=== PATIENT | female | born 1950 | race Caucasian/White ===

== ENCOUNTER 2016-09-09 09:39 | Emergency (ER) | payer OTHER, BC ==
[~2016-09-09] VITALS: Ht 162.6 cm; Wt 97.2 kg
[~2016-09-09 09:39] MED LIST: ASPI81TA21 PO; CALC-416 PO; FENO160T PO; HYDR-3124 PO; LEVO112T4 PO; LISI-725 PO; OMEG10007 PO; PANT40TA PO
[2016-09-09 09:50] VITALS: TEMP 36.9; Ht 162.6 cm; Wt 97.2 kg
[2016-09-09] MEDS ORDERED: ZNTT/150 PO (10:40)
[2016-09-09] MEDS ORDERED: ATEN50TA8 PO (10:40)
--- NOTE | 2016-09-09 10:41 | DIAGNOSTIC IMAGING REPORT ---
LEFT ANKLE 3 VIEWS CLINICAL HISTORY: Left ankle pain. FINDINGS: 3 views of the left ankle are obtained. No prior studies are available for comparison at the time of dictation. The skeletal structures are osteopenic. There is a distracted avulsion fracture of the medial malleolus. A vertically oriented fracture is seen through the posterior tibial plafond, and there is approximately 2 cm of posterior dislocation of the talus at the tibiotalar joint. There is an oblique and distracted fracture of the distal fibula. A large joint effusion is identified and significant soft tissue edema is present around ankle. There is a large dorsal calcaneal enthesophyte. Degenerative spurring is noted from the anterior tibial plafond. Degenerative spurring is also seen along the dorsal aspect of the tarsal bones. IMPRESSION: Trimalleolar left ankle fracture and dislocation as above with associated joint effusion and soft tissue edema. Electronically signed by: Donny Cuevas M.D. 09/09/2016 10:40 AM Dictated Date/Time: 09/09/2016 10:37 AM
[2016-09-09] MEDS ORDERED: MoRPHine SULFATE 2 MG/ML CARP IV STA ×2 (10:44→12:16)
[2016-09-09] MEDS ORDERED: ONDANSETRON INJ 2 MG/ML 2 ML VIAL IV STA (10:44)
[2016-09-09 11:01] LABS: BASO % 0.7 %; BASO ABS # 0.04 K/uL (0-0.2); COMPLETE YES; EOS % 1.9 %; HEMATOCRIT 44.2 % (37-47); IG% 0.2 %; LYMPH % 17.6 %; LYMPH ABS # 1.04 K/uL (1.2-3.4); MEAN CELL VOLUME 89.7 fL (80-100); MEAN CORPUSCULAR HEMOGLOBIN 30.2 pg (25-34); MEAN CORPUSCULAR HGB CONC 33.7 g/dl (32-36); MEAN PLATELET VOLUME 10.8 fL (7.4-10.4); MONO % 10.3 %; NEUT % 69.3 %; PLATELET COUNT 216 K/uL (130-400); RED BLOOD COUNT 4.93 M/uL (4.2-5.4)
[2016-09-09 11:34] LABS: BUN/CREATININE RATIO 22.7 (10-20); CALCIUM 10.4 mg/dl (8.5-10.1)
--- NOTE | 2016-09-09 12:01 | DIAGNOSTIC IMAGING REPORT ---
LEFT ANKLE 3 VIEWS CLINICAL HISTORY: Postreduction examination. Ankle fracture. FINDINGS: 3 views of the left ankle are compared to study performed earlier the same day 09/09/2016. The examination is performed through a splint, obscuring fine bony detail. The skeletal structures are osteopenic. Again seen is a distracted avulsion fracture of the medial malleolus and a minimally distracted fracture distal fibula. A vertically oriented fracture is again seen through the posterior tibial plafond, and there is has been modest improvement in alignment status post reduction. There is approximately 1.4 cm of persistent posterior dislocation of the talus at the tibiotalar joint. A large joint effusion is identified and significant soft tissue edema is present around ankle. There is a large dorsal calcaneal enthesophyte. Degenerative spurring is noted from the anterior tibial plafond. Degenerative spurring is also seen along the dorsal aspect of the tarsal bones. IMPRESSION: Modest improvement in alignment of a trimalleolar left ankle fracture status post external reduction. Electronically signed by: Donny Cuevas M.D. 09/09/2016 11:59 AM Dictated Date/Time: 09/09/2016 11:57 AM
[2016-09-09] MEDS ORDERED: HYDR-5688 PO (12:52)
--- NOTE | 2016-09-09 13:04 | DIAGNOSTIC IMAGING REPORT ---
LEFT ANKLE 3 VIEWS CLINICAL HISTORY: Postreduction examination. Left ankle fractures. FINDINGS: AP and crosstable lateral portable views of the left ankle are compared to studies performed earlier the same day 09/09/2016. The skeletal structures are osteopenic. Again seen is a trimalleolar fracture of the left ankle, with an avulsion fracture of the medial malleolus an oblique fracture through the distal fibula. Again seen is a vertically oriented and comminuted fracture through the posterior tibial plafond. There is approximately 9 mm of posterior distraction of the largest fragments. There has been shinto of near-anatomic alignment at the tibiotalar joint as compared to previous. A large joint effusion is identified and significant soft tissue edema is present around ankle. There is a large dorsal calcaneal enthesophyte. Degenerative spurring is noted from the anterior tibial plafond. Degenerative spurring is also seen along the dorsal aspect of the tarsal bones. IMPRESSION: Again seen is a trimalleolar left ankle fracture. There has been significant improvement in alignment as compared to previous with shinto of near-anatomic alignment at the tibiotalar joint. Electronically signed by: Donny Cuveas M.D. 09/09/2016 1:03 PM Dictated Date/Time: 09/09/2016 1:00 PM
[2016-09-09 13:10] VITALS: BP 124/83; PULSE 68; O2SAT 91
--- NOTE | 2016-09-09 17:40 | EMERGENCY ROOM VISIT NOTE ---
ED Visit Note First contact with patient: 09:59 Chief complaint: Left ankle pain. HPI: This 66-year-old white female presents to the emergency room for evaluation of her left ankle. The patient injured the ankle about an hour ago when she walked down 2 steps in her garage. She slipped and landed awkwardly on the left ankle. She felt a snap and was unable to bear weight on the ankle. She states it became swollen immediately. Since that time, they have had persistent pain over the medial and lateral portion of the ankle. She denies any numbness or tingling. no knee or hip pain. Treatment has consisted of ice provided in the ER. No prior history of significant ankle injury. Pain is 7/ 10. There is a visible deformity to the ankle. Her son accompanies her today. REVIEW OF SYSTEM: HEENT: No dizziness, visual problems, hearing loss, tinnitus. There is no difficulty swallowing and no oral lesions are present. PULMONARY: No cough, shortness of breath, sputum production or hemoptysis. CARDIOVASCULAR: No chest pain, palpitations, shortness of breath or peripheral edema. GASTROINTESTINAL: No diarrhea, constipation, nausea, vomiting, or abdominal pain. GENITOURINARY: No dysuria, frequency, urgency or nocturia. NEUROLOGIC: No weakness, muscle tenderness, epilepsy or history of neurological problems. MUSCULOSKELETAL: No history of joint tenderness/swelling. No history of arthritis or arthralgias. SKIN: No rashes or lesions. ENDOCRINE: No history of diabetes, abnormal hair growth. PAST MEDICAL HISTORY: Supplemental sheet was reviewed and signed. Previous surgeries: None Medical history: Significant for hypertension, GERD, hypothyroidism, elevated cholesterol, and osteoarthritis Current medications: Reviewed and filed in patient's chart Allergies: Adhesives, citalopram, codeine, gemfibrozil, minocycline, Macrobid, Bactrim Family history: Noncontributory. Social history: . Retired. No tobacco use. PHYSICAL EXAM: Vitals: Afebrile. Reviewed and filed in patient's chart General: Well-developed, well-nourished, elderly white female, in obvious discomfort. No acute distress. She is sitting in a wheelchair. Alert and oriented. Skin:Warm and dry with good turgor. No rashes or lesions. No erythema. The patient is not diaphoretic. No abrasions. Edema is present in the left ankle with mild ecchymosis developing there is a prominence over the tibia anteriorly. Musculoskeletal: Left ankle evaluation reveals no pain with palpation across the knee or proximal tibia or fibula. There is pain with palpation over the lateral malleolus and the lateral ligaments. There is also pain over the medial malleolus and deltoid ligament. Crepitus is palpable. Achilles' tendon is palpated to its entirety and found to be intact and without defect. Normal Staton test. No pain with palpation of the calcaneus, fifth metatarsal base, midfoot, forefoot, or toes. Motor function to the toes is intact but causes ankle pain. Drawer and tilt test were not attempted. Neurologic: Gross sensation is intact across all aspects of the foot and ankle via soft touch. Peripheral pulses are 2+. Data: Radiographic images of the ankle were obtained today and were reviewed by me as well as radiology. They are positive for trimalleolar fracture dislocation of the ankle with posterior and lateral displacement. IMPRESSION: Left ankle trimalleolar fracture dislocation PLAN: The patient was educated regarding today's findings. Conservative care measures were discussed. IV was established. Labs were obtained. Patient was given Zofran 4 mg IV and morphine 2 mg IV. I did attempt to reduce the ankle. Shift was felt. The ankle was splinted under my direct supervision while I maintained reduction. The technical support analyst did assist with the splinting. Neurovascular status was checked after splint placement and was adequate. Postreduction films confirmed improvement in the AP film, but the ankle remained dislocated posteriorly on the lateral. The splint was removed and the patient was given an additional 2 mg morphine IV. Countertraction was also applied at her knee. I did attempt a second reduction and felt a significant shift with visibly better positioning of the ankle. Postreduction films were obtained prior to splint placement. They confirmed reduction of the ankle on the lateral. Medial lateral positioning also remained adequate. Splint was then reapplied with the assistance of the technical support analyst. Neurovascular status was again checked and was intact. Patient was instructed to be nonweightbearing on the left leg. She has a walker at home. I would like her to follow up in the office tomorrow for more definitive management. She will likely need surgical intervention. Prescription was given for Hilbert 5 mg to be used every 6 hours as needed for severe pain. She may use Tylenol and Motrin every 6 hours for mild discomfort. Gentle toe motion daily. Ice and elevate intermittently over the next 3 days. Lower leg should be elevated at night during sleep. Return to the ER for any acute changes. Possibility of tendon rupture, sprain, and foot fracture were also considered. Problem List Medical Problems: (1) Benign hypertension Status: Chronic (2) Chronic Sinusitis Nos Status: Chronic (3) Esophageal Reflux Status: Chronic (4) Gastroesophageal reflux disease Status: Chronic (5) Hyperlipidemia Nec/Nos Status: Chronic (6) Hypertension Nos Status: Chronic (7) Hypothyroidism Status: Chronic Current/Historical Medications Scheduled Aspirin Enteric Coated (Ecotrin Or Generic), 81 MG PO DAILY Atenolol (Tenormin), 50 MG PO DAILY Calcium Carbonate-Vitamin D (Calcium 600+D3), 1 TAB PO BID Fenofibrate (Tricor), 160 MG PO DAILY Fish Oil (Blackwater-3), 1 CAP PO BID Hydroxyzine Hcl (Atarax), 25 MG PO DAILY Levothyroxine Sodium (Levothyroxine Sodium), 112 MCG PO DAILY Ranitidine (Zantac), 150 MG PO BID Scheduled PRN Hydrocodone/Acetaminophen 5MG/325MG (Hilbert 5MG/325MG), 1-2 TABLET PO Q6H PRN for Pain Allergies Coded Allergies: Adhesives (Verified Allergy, Unknown, ., 09/16/14) Citalopram (Verified Allergy, Unknown, UNKNOWN, 09/16/14) Codeine (Verified Allergy, Unknown, ., 09/16/14) Gemfibrozil (Verified Allergy, Unknown, UNKNOWN, 09/16/14) Minocycline (Verified Allergy, Unknown, ., 09/16/14) Nitrofurantoin (Verified Allergy, Unknown, UNKNOWN, 09/16/14) Sulfamethoxazole w/Trimethoprim (Verified Allergy, Unknown, ., 09/16/14) POLLEN (Verified Adverse Reaction, Unknown, UNKNOWN, 09/16/14) Uncoded Allergies: MOLD (Adverse Reaction, Unknown, UNKNOWN, 12/21/13) Vital Signs Date Time Temp Pulse Resp B/P (MAP) Pulse Ox O2 Delivery O2 Flow Rate FiO2 09/09/16 13:10 68 20 124/83 91 09/09/16 12:00 71 20 146/77 91 Room Air 09/09/16 09:50 36.9 68 16 148/82 93 Room Air Laboratory Results 09/09/16 10:46 Red Blood Count 4.93, Mean Corpuscular Volume 89.7, Mean Corpuscular Hemoglobin 30.2, Mean Corpuscular Hemoglobin Concent 33.7, Mean Platelet Volume 10.8, Neutrophils (%) (Auto) 69.3, Lymphocytes (%) (Auto) 17.6, Monocytes (%) (Auto) 10.3, Eosinophils (%) (Auto) 1.9, Basophils (%) (Auto) 0.7, Neutrophils # (Auto ) 4.09, Lymphocytes # (Auto) 1.04, Monocytes # (Auto) 0.61, Eosinophils # (Auto ) 0.11, Basophils # (Auto) 0.04 09/09/16 10:46 Test 09/09/16 10:46 White Blood Count 5.90 K/uL (4.8-10.8) Red Blood Count 4.93 M/uL (4.2-5.4) Hemoglobin 14.9 g/dL (12.0-16.0) Hematocrit 44.2 % (37-47) Mean Corpuscular Volume 89.7 fL (80-100) Mean Corpuscular Hemoglobin 30.2 pg (25-34) Mean Corpuscular Hemoglobin Concent 33.7 g/dl (32-36) Platelet Count 216 K/uL (130-400) Mean Platelet Volume 10.8 fL (7.4-10.4) Neutrophils (%) (Auto) 69.3 % Lymphocytes (%) (Auto) 17.6 % Monocytes (%) (Auto) 10.3 % Eosinophils (%) (Auto) 1.9 % Basophils (%) (Auto) 0.7 % Neutrophils # (Auto) 4.09 K/uL (1.4-6.5) Lymphocytes # (Auto) 1.04 K/uL (1.2-3.4) Monocytes # (Auto) 0.61 K/uL (0.11-0.59) Eosinophils # (Auto) 0.11 K/uL (0-0.5) Basophils # (Auto) 0.04 K/uL (0-0.2) RDW Standard Deviation 42.4 fL (36.4-46.3) RDW Coefficient of Variation 12.9 % (11.5-14.5) Immature Granulocyte % (Auto) 0.2 % Immature Granulocyte # (Auto) 0.01 K/uL (0.00-0.02) Anion Gap 9.0 mmol/L (3-11) Est Creatinine Clear Calc Drug Dose 62.7 ml/min Estimated GFR () 68.0 Estimated GFR (Non- 58.7 BUN/Creatinine Ratio 22.7 (10-20) Calcium Level 10.4 mg/dl (8.5-10.1) Medications Administered Medications (Trade) Dose Ordered Sig/Lucho Route Start Time Stop Time Status Last Admin Dose Admin Morphine Sulfate (MoRPHine SULFATE INJ) 2 mg NOW STAT IV 09/09/16 10:44 09/09/16 10:47 DC 09/09/16 10:56 2 MG Ondansetron HCl (Zofran Inj) 4 mg NOW STAT IV 09/09/16 10:44 09/09/16 10:47 DC 09/09/16 10:56 4 MG Morphine Sulfate (MoRPHine SULFATE INJ) 2 mg NOW STAT IV 09/09/16 12:16 09/09/16 12:17 DC 09/09/16 12:19 2 MG Departure Information Impression Primary Impression: Trimalleolar fracture of ankle, closed Dispostion Home / Self-Care Condition GOOD Prescriptions Hydrocodone/Acetaminophen 5MG/325MG (Hilbert 5MG/325MG) Tab 1-2 TABLET PO Q6H Y for Pain, #20 TAB For Initial Treatment Prov: Fernando Collazo,P.A. 09/09/16 Referrals Charles Roland M.D. Forms CARE OF CASTS, HOME CARE DOCUMENTATION FORM, SPECIAL NARCOTICS INSTRUCTIONS, TYLENOL USE, IMPORTANT VISIT INFORMATION Patient Instructions My [facility] Additional Instructions ice and elevate the leg frequently to reduce pain/swelling norco 1-2 pills every 6 hours as needed for severe pain substitute tylenol every 6 hours for mild pain call [facility] tomorrow morning for follow up keep the splint on and dry at all times NO WEIGHT on the left leg-use your walker.
[2016-09-13] MEDS ORDERED: ACET-1256 PO (09:19)
[2016-09-17] MEDS ORDERED: HYDR-5688 PO (10:46)
[2016-10-01] MEDS ORDERED: CMD25 PO (11:26)
[2016-12-18] MEDS ORDERED: CMD2 PO (15:20)
== END 2016-09-09 13:14 | disposition home or self-care (01) ==
LOC: C.EDB 09:40
DX: S82.852A Displaced trimalleolar fracture of left lower leg, initial encounter for closed fracture (principal); W10.9XXA Fall (on) (from) unspecified stairs and steps, initial encounter; Y92.015 Private garage of single-family (private) house as the place of occurrence of the external cause; I10 Essential (primary) hypertension; K21.9 Gastro-esophageal reflux disease without esophagitis; E03.9 Hypothyroidism, unspecified; E78.00 Pure hypercholesterolemia, unspecified; M19.90 Unspecified osteoarthritis, unspecified site; J32.9 Chronic sinusitis, unspecified; E78.5 Hyperlipidemia, unspecified; Z79.82 Long term (current) use of aspirin; Z79.899 Other long term (current) drug therapy

== ENCOUNTER → 2016-09-13 | Outpatient (CLI) | payer OTHER, BC ==
[~2016-09-13] MED LIST changes: +ACET-1256 PO; +ASPI-113 PO; +ATEN50TA8 PO; +CMD2 PO; +CMD25 PO; +HYDR-4330 PO; +HYDR-5688 PO; -LISI-725 PO; -PANT40TA PO; +ZNTT/150 PO
--- NOTE | 2016-09-13 16:11 | DIAGNOSTIC IMAGING REPORT ---
CT LEFT ANKLE NO CONTRAST CT DOSE: CLINICAL HISTORY: S82.899A Z01.818 trimalleolar fracture dislocation TECHNIQUE: Helical images were acquired in the transverse plane. Sagittal and coronal reformatted images were acquired. COMPARISON STUDY: Conventional radiographic study dated 09/09/2016 FINDINGS: There is diffuse soft tissue edema. There is a comminuted oblique fracture of the distal fibula. The distal fragment is posteriorly displaced x 10 mm. There is a comminuted fracture of the posterior malleolus of the distal tibia. The major component of the tibia is anterior subluxed with respect to the talus x 11 mm. There is a comminuted fracture of the medial malleolus. Major fragments are distracted x 6 mm. There is diffuse soft tissue edema. No tendon or fractures are visualized. The subtalar joint appears intact. There is a prominent Achilles insertional spur. IMPRESSION: Trimalleolar fracture subluxation. Electronically signed by: Chon Medina M.D. 09/13/2016 4:09 PM Dictated Date/Time: 09/13/2016 4:04 PM
== END | disposition home or self-care (01) ==
LOC: C.CPL 15:11
PROVIDERS: ATTEND Physician Assistant
DX: S82.852A Displaced trimalleolar fracture of left lower leg, initial encounter for closed fracture (principal); X58.XXXA Exposure to other specified factors, initial encounter; Z01.818 Encounter for other preprocedural examination

== ENCOUNTER → 2016-09-17 | Day surgery (SDC) | payer OTHER, BC ==
[2016-09-13 09:21] VITALS: Ht 162.6 cm; Wt 97.3 kg
[~2016-09-17] VITALS: Ht 162.6 cm; Wt 97.3 kg
[~2016-09-17] MED LIST changes: +ALBUTEROL HFA INHALER 8.5 GM INH ONE; +ATROPINE SULFATE 0.1 MG/ML 5ML SYR IV PRN; +BUPIVACAINE 0.5 % 5 MG/1 ML MPF 30ML VIAL ONE; +CLINDAMYCIN 600 MG/54 ML D5W IV SCH; +CLINDAMYCIN PHOS 150 MG/ML 2 ML VIAL IV SCH; +DEXAMETHASONE SOD INJ 4 MG/ML VIAL ONE; +EpHEDrine SULFATE INJ 50 MG/ML AMP IV PRN; +EpHEDrine SULFATE INJ 50 MG/ML AMP ONE; +FENTANYL CITRATE INJ 50 MCG/1 ML 2 ML VIAL IV PRN; +FENTANYL CITRATE INJ 50 MCG/1 ML 2 ML VIAL ONE; +LACTATED RINGER'S 1000ML 1,000 ML IV SCH; +LIDOCAINE/EPINEPHRINE 1% INJ 50 ML VIAL ONE; +MIDAZOLAM HCL 1 MG/ML 2ML VIAL ONE; +MoRPHine SULFATE 2 MG/ML CARP IV PRN; +MoRPHine SULFATE 4 MG/ML 1 ML CARP\\VIAL IV PRN; +ONDANSETRON INJ 2 MG/ML 2 ML VIAL IV PRN; +ONDANSETRON INJ 2 MG/ML 2 ML VIAL ONE; +PROPOFOL IV EMULSION 10 MG/ML 20 ML VIAL IV ONE; +ROPIVACAINE 0.5% 5 MG/ML 30 ML VIAL ONE; +SODIUM CHLORIDE 0.9% INJ 10 ML VIAL ONE; +SUCCINYLCHOLINE CHLORIDE 20 MG/ML 10 ML VIAL IV ONE; +TRAMADOL HCL 50 MG TAB PO PRN
--- NOTE | 2016-09-17 12:39 | History & Physical Bridge - SC ---
H&P Re-Evaluation Bridge Note: I have examined the patient, reviewed the History & Physical and in the interval since the performance of the History & Physical I have noted the following changes of clinical significance: No changes noted
--- NOTE | 2016-09-17 16:11 | Discharge Instructions-SurgCtr ---
Discharge Instructions Date of Service Sep 17, 2016. Visit Reason for Visit: Left Ankle Fracture Discharge Discharge Diagnosis / Problem: Status post ORIF left ankle fracture Discharge Goals Goal(s): Decrease discomfort, Improve function, Increase independence Activity Recommendations Activity Limitations: per Instructions/Follow-up section Lifting Limitations: none Exercise/Sports Limitations: none May Resume Sexual Activity: when tolerated Shower/Bathe: may shower/bathe in 3 days Driving or Machine Use: Not while on narcotics or splinted/boot Anesthesia . Post Anesthesia Instructions: If you have had General Anesthesia or IV Sedation: * Do not drive today. * Resume driving when surgeon permits. * Do not make important decisions or sign legal documents today. * Call surgeon for: 1. Temperature elevations greater than 101 degrees F. 2. Uncontrollable pain. 3. Excessive bleeding. 4. Persistent nausea and vomiting. 5. Medication intolerance (nausea, vomiting or rash). * For nausea and vomiting use only clear liquids such as: tea, soda, bouillon until nausea subsides, then gradually increase diet as tolerated. * If you have any concerns or questions, call your surgeon's office. If physician is unavailable and it is an emergency, call 911 or go to the nearest emergency room. . Instructions / Follow-Up Instructions / Follow-Up Dr. Vaz in 10-15 days. Gaudencio Stock within 1 week. Diet Recommendations Home Diet: resume previous diet Procedures Procedures Performed: Left Ankle Fracture Open Reduction Internal Fixation Pending Studies Studies pending at discharge: no Medical Emergencies . Who to Call and When: Medical Emergencies: If at any time you feel your situation is an emergency, please call 911 immediately. . Non-Emergent Contact Non-Emergency issues call your: Surgeon Call Non-Emergent contact if: temperature is above 101.5, your pain is not controlled, wound has increased drainage, wound has increased redness . . "Provider Documentation" section prepared by Acosta Vaz. .
--- NOTE | 2016-09-17 16:13 | [facility] Post Operative Brief Note ---
Immediate Operative Summary Operative Date Sep 17, 2016. Pre-Operative Diagnosis Left Ankle Fracture Post-Operative Diagnosis Same Procedure(s) Performed Left Ankle Fracture Open Reduction Internal Fixation Surgeon Dr. Zonia Vaz Drive Away Driver Surgeon(s) Rolo Stock PA-C (No fellow avail) Estimated Blood Loss 25 ML Findings Comminuted, displaced trimalleolar left ankle fracture, with soft bone. Fluids (cc crystalloids) 1800 Specimens None Drains n/a Anesthesia LMA + popliteal block Complication(s) None Disposition Recovery Room / PACU (Stable)
--- NOTE | 2016-09-17 16:17 | [facility] Operative Report ---
Operative Report Operative Date Sep 17, 2016. Pre-Operative Diagnosis Left Ankle Trimalleolar Fracture Post-Operative Diagnosis Same Procedure(s) Performed Left Trimalleolar Ankle Fracture Open Reduction Internal Fixation Surgeon Dr. Zonia Vaz D[employer] Tender Surgeon(s) Rolo Stock PA-C (No fellow avail) Estimated Blood Loss 25 ML Findings Comminuted, displaced trimalleolar left ankle fracture, with soft bone. Fluids (cc crystalloids) 1800 Specimens None Drains n/a Anesthesia LMA + Popliteal block Complication(s) None Disposition Recovery Room / PACU (Stable) Implants Lateral Mal: 1) 5-Hole Distal Fibular Locking Plate (Arthrex). 2) 2.7 mm Locking Screws (12, 14, 16, & 18 mm). 3) 3.5 mm Locking Screws (14 mm x 3). 4) 3.5 mm Cortical Screw (22 mm). Posterior Mal: 1) 4.0 mm Cannulated Screws (50 x 2 mm). Medial Mal: 1) 3-Hole Medial Hook Plate (Arthrex). 2) 4.0 mm Cannulated Screw (44 mm). 3) 3.5 mm Cortical Screw (34 mm). 4) 3.5 mm Locking (24 mm). Indications The patient is a 66 year old female who injured their left ankle after a fall, sustaining a displaced bimalleolar ankle fracture. The patient understands the risks of surgery, which include but are not limited to: bleeding, infection, re- operation, damage to nerves and arteries, continued pain, loss of reduction, hardware failure, the need for repeat surgery, decrease level of activity, and DVT. The patient understand all of these instructions and explanations, all of their questions have been satisfactorily addressed. The patient have elected to proceed with surgery and the informed consent was signed. Description of Procedure The patient was taken to the Operating Room and placed in the supine position on the operating table. After general anesthetic was administered a multidisciplinary time-out was performed identifying my initials on the left limb as the correct and operative limb. Prior to the incision being made, 600 milligrams of intravenous Ancef were given. The left leg was prepped and draped in the standard fashion. The distal fibula was marked as well as the planned incision centered about the distal fibula 8 cm in length. In addition the planned medial incision approximately 5 cm in length and 3 cm anterior incision was also marked. The planned incisions were injected with a 50:50 mixture of 1% lidocaine and 0.5 % Marcaine with epi for a total of 16 cc. The fibula was approached first. The planned incision was made and carried down to the fibula. The fracture site was easily identified as there was a tear in the fascia. The Superficial Peroneal nerve was identified approximately 7cm proximal to the tip of fibula and was dissected and protected throughout the case. The fracture site was debrided with copious irrigation, dental pick, and rongeur, removing any soft tissue and hematoma. Using a a pointed reduction clamp the fracture was reduced. A single lag screw was placed in the standard fashion and the clamp was able to be removed. Her bone was soft. The posterior malleolar fragment had improved alignment. I was unable to place a clamp to further assist in the reduction without having the 5- hole distal fibular locking plate fit the distal fibula and held in place by K wires through locking guides. 3 proximal locking screws were placed through the plate and locking screws were placed in the distal holes. Next our attention was drawn to the posterior malleolar fracture and with the distal fibula reduced a pointed reduction clamp was placed along the posterior malleolar fragment and a small anterior skin incision was made and care was taken to protect any neurovascular structures for the clamp to further aid in the reduction of the posterior malleolus. The incision needed to be extended slightly in order to place the guidewire for the cannulated screw. After the first screw had been placed a second guidewire was placed with a parallel aiming guide slightly distal and more lateral. Both screws were placed in the standard fashion with noted improved alignment of the posterior comminuted malleolus fracture. Finally our attention was drawn to the medial malleoli or fracture. The initial incision needed to be extended proximally after evaluating the comminuted medial malleoli or fracture and determining that to cannulated screws would not be able to be placed. The fracture site was debrided with copious irrigation, dental pick, and rongeur, removing any soft tissue and hematoma. Using a a pointed reduction clamp the sleeve of posterior fracture fragment was reduced and used to help guide the reduction of the tip of the medial malleolus. The tip of the medial malleolus was held reduced with dental pick and a guidewire was placed. A hook plate was desired to maintain the reduction, but in order to achieve good compression at the fracture site the cannulated screw was placed to suck the plate more proximally. Again her bone was soft. A nonlocking screw was placed proximally to suck the plate down to the bone followed by another locking screw proximally. The wounds were copiously irrigated. Final x-rays were obtained, showing near anatomic reduction of the comminuted trimalleolar ankle fracture. The fascia over the plates was closed with 2-0 Vicryl and the subcutaneous layer were closed with 3-0 Vicryl. The skin was closed with anushka. The sponge and needle counts were correct. The wounds were covered with Xeroform, 4x4's, ABD's, Steril cast padding, and an AO splint was placed. The patient was awakened and taken to the recovery room in stable condition. Post-op Instructions: The patient will remain NWB for 4-6 weeks. Pain medicine prescription was given pre-operatively to be taken as needed. The patient will follow up with me in 10 -15 days. I attest to the content of the Intraoperative Record and any orders documented therein. Any exceptions are noted below.
--- NOTE | 2016-09-17 16:23 | [facility] Operative Report ---
Operative Report Operative Date Sep 17, 2016. Pre-Operative Diagnosis Left Ankle Trimalleolar Fracture Post-Operative Diagnosis Same Procedure(s) Performed Left Trimalleolar Ankle Fracture Open Reduction Internal Fixation Surgeon Dr. Zonia Vaz Car Repairer Helper Surgeon(s) Rolo Stock PA-C (No fellow avail) Estimated Blood Loss 25 ML Findings same Fluids (cc crystalloids) 1800 Specimens None Drains none Anesthesia general, block Complication(s) None Disposition Recovery Room / PACU Implants see Dr. Vaz's note Indications sustained injury to left ankle, xrays obtained, surgery recommended, consents signed Description of Procedure taken to the OR, prepped and draped, I was present the entire case, please see Dr. Vaz's op note for further detail. I attest to the content of the Intraoperative Record and any orders documented therein. Any exceptions are noted below.
[2016-09-17 16:59] VITALS: TEMP 36.5
--- NOTE | 2016-09-17 17:14 | Anesthesia Progress Nt - [facility] ---
Anesthesia Post Op Note Date & Time Sep 17, 2016 at 17:13 Vital Signs Pain Intensity: 0 Vital Signs Past 12 Hours Date Time Temp Pulse Resp B/P (MAP) Pulse Ox O2 Delivery O2 Flow Rate FiO2 09/17/16 16:59 36.5 85 16 119/64 (82) 94 Room Air 09/17/16 16:56 36.5 156/98 09/17/16 16:53 86 17 92 09/17/16 16:53 86 17 09/17/16 16:51 123/81 09/17/16 16:48 88 17 90 09/17/16 16:48 88 17 09/17/16 16:46 152/89 09/17/16 16:43 87 18 09/17/16 16:43 87 18 94 09/17/16 16:41 138/87 09/17/16 16:38 86 17 96 09/17/16 16:38 87 17 09/17/16 16:36 121/79 09/17/16 16:33 88 20 09/17/16 16:33 88 20 98 09/17/16 16:31 127/80 09/17/16 16:28 90 23 09/17/16 16:28 90 23 97 09/17/16 16:26 147/84 09/17/16 16:23 93 09/17/16 16:23 93 95 09/17/16 16:21 136/78 09/17/16 16:20 130/79 09/17/16 16:19 36.2 89 20 136/78 97 Mask 6 09/17/16 12:58 0 09/17/16 12:57 15 09/17/16 12:56 145/84 09/17/16 12:52 72 25 100 09/17/16 12:52 73 09/17/16 12:51 162/94 09/17/16 12:49 70 32 99 09/17/16 12:49 70 09/17/16 12:46 141/86 09/17/16 10:46 36.9 68 20 146/85 (105) 92 Room Air Notes Mental Status: alert / awake / arousable, participated in evaluation Pt Amnestic to Procedure: Yes Nausea / Vomiting: adequately controlled Pain: adequately controlled Airway Patency, RR, SpO2: stable & adequate BP & HR: stable & adequate Hydration State: stable & adequate Anesthetic Complications: no major complications apparent
[2016-09-17 17:36] VITALS: BP 121/85; PULSE 83; O2SAT 94
== END | disposition home or self-care (01) ==
LOC: X.SURG 10:07
PROVIDERS: ATTEND Orthopaedic Surgery Sports Medicine
DX: S82.852A Displaced trimalleolar fracture of left lower leg, initial encounter for closed fracture (principal); W19.XXXA Unspecified fall, initial encounter; I10 Essential (primary) hypertension; E78.5 Hyperlipidemia, unspecified; E03.9 Hypothyroidism, unspecified; K21.9 Gastro-esophageal reflux disease without esophagitis; M19.90 Unspecified osteoarthritis, unspecified site; Z90.89 Acquired absence of other organs; Z90.710 Acquired absence of both cervix and uterus; Z90.49 Acquired absence of other specified parts of digestive tract; M06.9 Rheumatoid arthritis, unspecified; Z79.82 Long term (current) use of aspirin; E66.9 Obesity, unspecified

== ENCOUNTER 2016-09-25 23:09 | Inpatient (IN) | payer OTHER, BC ==
[~2016-09-25] VITALS: Ht 163.8 cm; Wt 97.8 kg
[~2016-09-25 23:09] MED LIST changes: -ALBUTEROL HFA INHALER 8.5 GM INH ONE; -ASPI-113 PO; -ATROPINE SULFATE 0.1 MG/ML 5ML SYR IV PRN; -BUPIVACAINE 0.5 % 5 MG/1 ML MPF 30ML VIAL ONE; -CLINDAMYCIN 600 MG/54 ML D5W IV SCH; -CLINDAMYCIN PHOS 150 MG/ML 2 ML VIAL IV SCH; -CMD2 PO; -CMD25 PO; -DEXAMETHASONE SOD INJ 4 MG/ML VIAL ONE; -EpHEDrine SULFATE INJ 50 MG/ML AMP IV PRN; -EpHEDrine SULFATE INJ 50 MG/ML AMP ONE; -FENTANYL CITRATE INJ 50 MCG/1 ML 2 ML VIAL IV PRN; -FENTANYL CITRATE INJ 50 MCG/1 ML 2 ML VIAL ONE; -HYDR-4330 PO; -HYDR-5688 PO; -LACTATED RINGER'S 1000ML 1,000 ML IV SCH; -LIDOCAINE/EPINEPHRINE 1% INJ 50 ML VIAL ONE; -MIDAZOLAM HCL 1 MG/ML 2ML VIAL ONE; -MoRPHine SULFATE 2 MG/ML CARP IV PRN; -MoRPHine SULFATE 4 MG/ML 1 ML CARP\\VIAL IV PRN; -ONDANSETRON INJ 2 MG/ML 2 ML VIAL IV PRN; -ONDANSETRON INJ 2 MG/ML 2 ML VIAL ONE; -PROPOFOL IV EMULSION 10 MG/ML 20 ML VIAL IV ONE; -ROPIVACAINE 0.5% 5 MG/ML 30 ML VIAL ONE; -SODIUM CHLORIDE 0.9% INJ 10 ML VIAL ONE; -SUCCINYLCHOLINE CHLORIDE 20 MG/ML 10 ML VIAL IV ONE; -TRAMADOL HCL 50 MG TAB PO PRN
[2016-09-25] MEDS ORDERED: HYDR-4330 PO (23:59)
[2016-09-25] MEDS ORDERED: ASPI-113 PO (23:59)
[2016-09-26] VITALS (7 sets, daily range): BP systolic 118–157; BP diastolic 63–78; PULSE 57–87; TEMP 36.5–37; O2SAT 92–96; Ht 163.8 cm; Wt 97.8 kg
[2016-09-26] MEDS ORDERED: OPTIRAY 320 IV PRN (00:15)
--- NOTE | 2016-09-26 00:19 | EMERGENCY ROOM VISIT NOTE ---
History Report prepared by Daniel: Courtney Barrera Under the Supervision of: Dr. Eric Bautista M.D. First contact with patient: 23:51 Chief Complaint: CHEST PAIN Stated Complaint: CHEST PAIN Nursing Triage Summary: Pt arrived via ambulance ALS. Pt stated to EMS that she started to experience chest tightness and shortness of breath around noon today. The tightness is substernal and wraps around her chest to back. Pt thought that she might have pulled a muscle so she used bengay on the area. Pt stated that she went to bed and her tightness in the chest got worse. Pt stated she became diaphoretic. Pt denies nausea. Pt had recent surgery on her left ankle. When EMS arrived the pt pulse ox was low 90's. EMS gave the pt 324mg Aspirin and 2 Nitro. The pts pain was originally 6 out of 10. After the second nitro was given it came down to a 3 out of 10. History of Present Illness The patient is a 66 year old female who presents to the Emergency Room with complaints of worsening chest pain that began today. She currently rates her discomfort as a 3/10 in severity. The patient states that she just recently had surgery and has not been moving as frequently. She states that she has been placed on aspirin twice per day since her surgery. The patient states that her pain wraps around to her back. She additionally notes that she has become short of breath with the pain. The patient reports a previous stress test, but denies any previous cardiac catheterization or ever seeing a director hospice operations in the back. She states that the pain has progressively worsened since noon. The patient describes her pain as a tightness and pressure. Source of History: patient Onset: today Position: chest Symptom Intensity: 3/10 Quality: pressure, other (tightness) Timing: worsening Associated Symptoms: + SOB, + back pain Review of Systems See HPI for pertinent positives & negatives. A total of 10 systems reviewed and were otherwise negative. Past Medical & Surgical Medical Problems: (1) Benign hypertension (2) Chronic Sinusitis Nos (3) Esophageal Reflux (4) Gastroesophageal reflux disease (5) Hyperlipidemia Nec/Nos (6) Hypertension Nos (7) Hypothyroidism (8) Respiratory failure, acute Family History Diabetes mellitus Gallbladder disease Social History Smoking Status: Never Smoker Marital Status: Housing Status: lives with significant other Occupation Status: employed Current/Historical Medications Scheduled Aspirin Enteric Coated (Ecotrin Or Generic), 325 MG PO BID Atenolol (Tenormin), 50 MG PO QAM Calcium Carbonate-Vitamin D (Calcium 600+D3), 1 TAB PO BID Fenofibrate (Tricor), 160 MG PO QAM Fish Oil ([place]-3), 1 CAP PO BID Hydroxyzine Hcl (Atarax), 25 MG PO QAM Levothyroxine Sodium (Levothyroxine Sodium), 112 MCG PO QAM Ranitidine (Zantac), 150 MG PO BID Scheduled PRN Acetaminophen (Tylenol), 1,000 MG PO Q6H PRN for Pain Hydrocodone-Acetaminophen (Lortab 5-325 mg), 1 TAB PO Q4H PRN for Pain Allergies Coded Allergies: Amoxicillin (Verified Allergy, Intermediate, DIARRHEA, 09/25/16) Sulfamethoxazole w/Trimethoprim (Verified Allergy, Intermediate, HEADACHES , 09/25/16) Adhesives (Verified Allergy, Unknown, BURNING RASH, 09/25/16) Codeine (Verified Allergy, Unknown, HEADACHES OR NAUSEA -- UNSURE, 09/25/16 ) Gemfibrozil (Verified Allergy, Unknown, UNKNOWN, 09/25/16) Minocycline (Verified Allergy, Unknown, ., 09/25/16) Nitrofurantoin (Verified Allergy, Unknown, UNKNOWN, 09/25/16) Morphine (Verified Adverse Reaction, Severe, abdominal and neck pain, nausea, flushed, 09/26/16) POLLEN (Verified Adverse Reaction, Unknown, UNKNOWN, 09/25/16) Uncoded Allergies: MOLD (Adverse Reaction, Unknown, UNKNOWN, 12/21/13) Physical Exam Vital Signs Date Time Temp Pulse Resp B/P (MAP) Pulse Ox O2 Delivery O2 Flow Rate FiO2 09/26/16 02:01 167/96 09/26/16 01:31 162/86 09/26/16 01:20 67 18 96 09/26/16 01:18 71 18 164/81 95 Nasal Cannula 3.0 09/26/16 01:15 164/81 09/26/16 00:36 67 21 90 09/26/16 00:31 161/89 09/26/16 00:07 93 Nasal Cannula 2.0 09/26/16 00:06 91 Room Air 09/26/16 00:06 69 21 89 09/26/16 00:06 89 Room Air 09/26/16 00:01 157/86 09/26/16 00:00 63 18 91 09/25/16 23:31 158/90 09/25/16 23:30 66 19 92 09/25/16 23:25 66 18 159/86 91 09/25/16 23:23 90 Room Air 09/25/16 23:20 148/94 09/25/16 23:13 64 09/25/16 23:12 36.6 71 20 145/87 90 Room Air 09/25/16 23:12 90 Room Air Physical Exam GENERAL: Patient is a healthy-appearing well-nourished female HEAD: Normocephalic atraumatic EYES: Ocular movements intact pupils equal and react to light OROPHARYNX mucous membranes are moist no exudates present no erythema or edema present NECK: Supple no nuchal rigidity CHEST: Good equal expansion LUNGS: Clear and equal to auscultation CARDIAC: Normal S1 and S2 ABDOMEN: Soft nontender no guarding BACK: No CVA tenderness EXTREMITIES: No pain upon palpation normal muscle strength in all groups no clubbing cyanosis or edema NEURO: Patient is following commands and answering questions appropriately. Alert and oriented x3 Cranial Nerves 2-12 grossly intact Medical Decision & Procedures ER Provider Diagnostic Interpretation: 1 view chest x-ray interpreted by me: no evidence of pneumonia, congestion, or pneumothorax. Laboratory Results 09/25/16 22:41 Red Blood Count 4.81, Mean Corpuscular Volume 88.6, Mean Corpuscular Hemoglobin 29.5, Mean Corpuscular Hemoglobin Concent 33.3, Mean Platelet Volume 10.6, Neutrophils (%) (Auto) 70.6, Lymphocytes (%) (Auto) 17.2, Monocytes (%) (Auto) 8.0, Eosinophils (%) (Auto) 3.6, Basophils (%) (Auto) 0.3, Neutrophils # (Auto) 5.54, Lymphocytes # (Auto) 1.35, Monocytes # (Auto) 0.63, Eosinophils # (Auto) 0.28, Basophils # (Auto) 0.02 09/25/16 22:41 Test 09/25/16 22:41 09/25/16 23:41 09/26/16 01:19 09/26/16 01:41 White Blood Count 7.84 K/uL (4.8-10.8) Red Blood Count 4.81 M/uL (4.2-5.4) Hemoglobin 14.2 g/dL (12.0-16.0) Hematocrit 42.6 % (37-47) Mean Corpuscular Volume 88.6 fL (80-100) Mean Corpuscular Hemoglobin 29.5 pg (25-34) Mean Corpuscular Hemoglobin Concent 33.3 g/dl (32-36) Platelet Count 315 K/uL (130-400) Mean Platelet Volume 10.6 fL (7.4-10.4) Neutrophils (%) (Auto) 70.6 % Lymphocytes (%) (Auto) 17.2 % Monocytes (%) (Auto) 8.0 % Eosinophils (%) (Auto) 3.6 % Basophils (%) (Auto) 0.3 % Neutrophils # (Auto) 5.54 K/uL (1.4-6.5) Lymphocytes # (Auto) 1.35 K/uL (1.2-3.4) Monocytes # (Auto) 0.63 K/uL (0.11-0.59) Eosinophils # (Auto) 0.28 K/uL (0-0.5) Basophils # (Auto) 0.02 K/uL (0-0.2) RDW Standard Deviation 39.8 fL (36.4-46.3) RDW Coefficient of Variation 12.5 % (11.5-14.5) Immature Granulocyte % (Auto) 0.3 % Immature Granulocyte # (Auto) 0.02 K/uL (0.00-0.02) D-Dimer [id number] ug/L FEU (0-500) Anion Gap 8.0 mmol/L (3-11) Est Creatinine Clear Calc Drug Dose 53.3 ml/min Estimated GFR () 54.5 Estimated GFR (Non- 47.1 BUN/Creatinine Ratio 18.3 (10-20) Calcium Level 10.5 mg/dl (8.5-10.1) Total Bilirubin 0.3 mg/dl (0.2-1) Direct Bilirubin < 0.1 mg/dl (0-0.2) Aspartate Amino Transf (AST/SGOT) 24 U/L (15-37) Alanine Aminotransferase (ALT/SGPT) 31 U/L (12-78) Alkaline Phosphatase 68 U/L (45-117) Total Creatine Kinase 46 U/L (26-192) Creatine Kinase MB < 0.5 ng/ml (0.5-3.6) Creatine Kinase MB Ratio (0-3.0) Troponin I 0.023 ng/ml (0-0.045) Total Protein 7.6 gm/dl (6.4-8.2) Albumin 3.8 gm/dl (3.4-5.0) Lipase 268 U/L (73-393) Prothrombin Time 11.0 SECONDS (9.0-12.0) Prothromb Time International Ratio 1.0 (0.9-1.1) Activated Partial Thromboplast Time 24.3 SECONDS (21.0-31.0) Partial Thromboplastin Ratio 0.9 Labs reviewed by ED physician. Medications Administered Medications (Trade) Dose Ordered Sig/Lucho Route Start Time Stop Time Status Last Admin Dose Admin Famotidine (Pepcid Tab) 20 mg NOW STAT PO 09/26/16 00:33 09/26/16 00:35 DC 09/26/16 00:48 20 MG Sucralfate (Carafate Tab) 1 gm NOW STAT PO 09/26/16 00:33 09/26/16 00:35 DC 09/26/16 00:48 1 GM Lidocaine HCl (Viscous Lidocaine 2% Soln) 20 ml STK-MED ONCE .ROUTE 09/26/16 00:45 09/26/16 00:46 DC 09/26/16 00:49 20 ML Al Hydroxide/Mg Hydroxide (Maalox Susp) 30 ml STK-MED ONCE .ROUTE 09/26/16 00:45 09/26/16 00:46 DC 09/26/16 00:49 30 ML Ondansetron HCl (Zofran Inj) 4 mg NOW STAT IV 09/26/16 01:30 09/26/16 01:32 DC 09/26/16 01:47 4 MG Albuterol/ Ipratropium (Duoneb) 12 ml ONE ONCE INH 09/26/16 01:30 09/26/16 01:32 DC 09/26/16 02:09 12 ML Morphine Sulfate (MoRPHine SULFATE INJ) 2 mg STK-MED ONCE .ROUTE 09/26/16 01:44 09/26/16 01:45 DC 09/26/16 01:47 2 MG Morphine Sulfate (MoRPHine SULFATE INJ) 4 mg STK-MED ONCE .ROUTE 09/26/16 01:44 09/26/16 01:45 DC 09/26/16 01:51 4 MG Diphenhydramine HCl (Benadryl Inj) 50 mg NOW STAT IV 09/26/16 01:54 09/26/16 01:55 DC 09/26/16 01:56 50 MG ECG Indication: chest pain Rate (beats per minute): 67 Rhythm: normal sinus Findings: no acute ischemic change, no ectopy ED Course 2355: Past medical records reviewed. The patient was evaluated in room C11B. A complete history and physical examination was performed. 0033: Ordered Carafate Tab 1 gm PO, Pepcid Tab 20 mg PO, GI cocktail 24 ml PO. Medical Decision Differential diagnosis: Etiologies such as cardiac ischemia, aortic dissection, pulmonary embolism, pneumonia, pneumothorax, musculoskeletal, infections, pericarditis, myocarditis , esophageal rupture, gastrointestinal, as well as others were entertained. Medication Reconciliation: I attest that I have personally reviewed the patient' s current medication list Blood Pressure Screening: Patient was found to have an elevated blood pressure and was referred to their primary care doctor for recheck and further treatment This is a 66-year-old female who presents emergency department complaining of chest heaviness. I will note that the patient recently had surgery on her left lower extremity. I am concerned about a blood clot therefore the patient was sent for a CAT scan of the chest. She has a large pulmonary embolus. Hypercoagulability workup was obtained. The patient is hypoxic here in the emergency department and requiring oxygen. I therefore believe that the patient should be admitted. PT INR PTT were also drawn. I did discuss the case with the hospitalist service. Impression Primary Impression: Pulmonary embolism Critical Care I have personally spent greater than 30 minutes of critical care time in the direct management of this patient. This includes bedside care, interpretation of diagnostic studies, and testing, discussion with consultants, patient, and family members, and other required patient management activities. This 30 minutes is in excess of all separately billable procedures. Scribe Attestation The scribe's documentation has been prepared under my direction and personally reviewed by me in its entirety. I confirm that the note above accurately reflects all work, treatment, procedures, and medical decision making performed by me. Departure Information Dispostion Being Evaluated By Hospitalist Referrals Neha Aguirre (PCP) Patient Instructions My [facility] Problem Qualifiers Primary Impression: Pulmonary embolism Pulmonary embolism type: other Chronicity: acute Acute cor pulmonale presence: without acute cor pulmonale Qualified Codes: I26.99 - Other pulmonary embolism without acute cor pulmonale
[2016-09-26 00:29] LABS: BASO % 0.3 %; BASO ABS # 0.02 K/uL (0-0.2); COMPLETE YES; EOS % 3.6 %; HEMATOCRIT 42.6 % (37-47); IG% 0.3 %; LYMPH % 17.2 %; LYMPH ABS # 1.35 K/uL (1.2-3.4); MEAN CELL VOLUME 88.6 fL (80-100); MEAN CORPUSCULAR HEMOGLOBIN 29.5 pg (25-34); MEAN CORPUSCULAR HGB CONC 33.3 g/dl (32-36); MEAN PLATELET VOLUME 10.6 fL (7.4-10.4); NEUT % 70.6 %; PLATELET COUNT 315 K/uL (130-400); RED BLOOD COUNT 4.81 M/uL (4.2-5.4); WHITE BLOOD COUNT 7.84 K/uL (4.8-10.8)
[2016-09-26] MEDS ORDERED: SUCRALFATE 1 GM TAB PO STA (00:33)
[2016-09-26] MEDS ORDERED: GI COCKTAIL PO STA (00:33)
[2016-09-26] MEDS ORDERED: FAMOTIDINE 20 MG TAB PO STA (00:33)
[2016-09-26] MEDS ORDERED: LIDOCAINE HCL 2% VISC SOLN 20 ML UDC ONE (00:45)
[2016-09-26] MEDS ORDERED: ALUMINUM/MAGNESIUM SUSP 30 ML UDC ONE (00:45)
[2016-09-26 00:51] LABS: ALKALINE PHOSPHATASE 68 U/L (45-117); ALT/SGPT 31 U/L (12-78); AST/SGOT 24 U/L (15-37); BLOOD UREA NITROGEN 22 mg/dl (7-18); BUN/CREATININE RATIO 18.3 (10-20); CALCIUM 10.5 mg/dl (8.5-10.1); CARBON DIOXIDE 27 mmol/L (21-32); CHLORIDE 108 mmol/L (98-107); POTASSIUM 3.7 mmol/L (3.5-5.1); SODIUM 143 mmol/L (136-145)
[2016-09-26 01:00] LABS: GLUCOSE 102 mg/dl (70-99)
[2016-09-26] MEDS ORDERED: MoRPHine SULFATE 10 MG/ML CARP/VIAL IV STA (01:30)
[2016-09-26] MEDS ORDERED: ONDANSETRON INJ 2 MG/ML 2 ML VIAL IV STA (01:30)
[2016-09-26] MEDS ORDERED: ALBUT/IPRATROP 3MG/0.5MG NEB 3 ML VIAL INH ONE (01:30)
[2016-09-26 01:37] LABS: PARTIAL THROMBOPLASTIN RATIO 0.9
[2016-09-26] MEDS ORDERED: MoRPHine SULFATE 4 MG/ML 1 ML CARP\\VIAL ONE (01:44)
[2016-09-26] MEDS ORDERED: MoRPHine SULFATE 2 MG/ML CARP ONE (01:44)
[2016-09-26] MEDS ORDERED: DiphenhydrAMINE HCL 50 MG/ML VIAL ONE (01:54)
[2016-09-26] MEDS ORDERED: DiphenhydrAMINE HCL 50 MG/ML VIAL IV STA (01:54)
[2016-09-26] MEDS ORDERED: HYDROCODONE/ACETAMOPHEN 5/325MG TAB PO PRN (02:30)
[2016-09-26] MEDS ORDERED: HYDROmorphone INJ 0.5 MG/0.5 ML SYR IV PRN (02:30)
[2016-09-26] MEDS ORDERED: ONDANSETRON INJ 2 MG/ML 2 ML VIAL IV PRN (02:30)
[2016-09-26] MEDS ORDERED: ALBUT/IPRATROP 3MG/0.5MG NEB 3 ML VIAL INH PRN (02:30)
[2016-09-26 02:33] LABS: ARTERIAL BLD GAS O2 SATURATION 93.5 % (90-95); ARTERIAL BLOOD GAS BASE EXCESS -2.7 mEq/L (-9-1.8); ARTERIAL BLOOD GAS HCO3 21 mmol/L (19-24); ARTERIAL BLOOD GAS PO2 71 mm/Hg (80-95); ARTERIAL BLOOD GAS pH 7.41 (7.35-7.45)
[2016-09-26 02:35] LABS: ALLEN TEST POS (POS); O2 ADMINISTRATION 2 LITERS
--- NOTE | 2016-09-26 02:37 | History and Physical ---
History & Physical Date & Time of Service: Sep 26, 2016 at 02:37 Chief Complaint: Chest Pain Primary Care Physician: Neha Aguirre History of Present Illness Source: patient, spouse, hospital records Recent confinement under orthopedic service last for left ankle fracture status post ORIF. As per patient and , they were instructed to take full dose aspirin for the next few weeks postop to prevent clots. 1 day history of shortness of breath and epigastric discomfort. No cough symptoms. Patient denies actual chest pain. Left lower extremity a little swollen. Patient brought to the emergency room. Past Medical/Surgical History Medical Problems: (1) Benign hypertension Status: Chronic (2) Chronic Sinusitis Nos Status: Chronic (3) Esophageal Reflux Status: Chronic (4) Gastroesophageal reflux disease Status: Chronic (5) Hyperlipidemia Nec/Nos Status: Chronic (6) Hypertension Nos Status: Chronic (7) Hypothyroidism Status: Chronic Surgeries : Orthopedic procedure Hysterectomy Cholecystectomy Family History Diabetes mellitus Gallbladder disease Social History Smoking Status: Never Smoker Marital Status: Occupational Status: employed Immunizations History of Influenza Vaccine: Yes History of Tetanus Vaccine?: Yes History of Pneumococcal: No History of Hepatitis B Vaccine: No Multi-Drug Resistant Organisms History of MDRO: No Allergies Coded Allergies: Amoxicillin (Verified Allergy, Intermediate, DIARRHEA, 09/25/16) Sulfamethoxazole w/Trimethoprim (Verified Allergy, Intermediate, HEADACHES , 09/25/16) Adhesives (Verified Allergy, Unknown, BURNING RASH, 09/25/16) Codeine (Verified Allergy, Unknown, HEADACHES OR NAUSEA -- UNSURE, 09/25/16 ) Gemfibrozil (Verified Allergy, Unknown, UNKNOWN, 09/25/16) Minocycline (Verified Allergy, Unknown, ., 09/25/16) Nitrofurantoin (Verified Allergy, Unknown, UNKNOWN, 09/25/16) Morphine (Verified Adverse Reaction, Severe, abdominal and neck pain, nausea, flushed, 09/26/16) POLLEN (Verified Adverse Reaction, Unknown, UNKNOWN, 09/25/16) Uncoded Allergies: MOLD (Adverse Reaction, Unknown, UNKNOWN, 12/21/13) Home Medications Scheduled Aspirin Enteric Coated (Ecotrin Or Generic), 325 MG PO BID Atenolol (Tenormin), 50 MG PO QAM Calcium Carbonate-Vitamin D (Calcium 600+D3), 1 TAB PO BID Fenofibrate (Tricor), 160 MG PO QAM Fish Oil ([place]-3), 1 CAP PO BID Hydroxyzine Hcl (Atarax), 25 MG PO QAM Levothyroxine Sodium (Levothyroxine Sodium), 112 MCG PO QAM Ranitidine (Zantac), 150 MG PO BID Scheduled PRN Acetaminophen (Tylenol), 1,000 MG PO Q6H PRN for Pain Hydrocodone-Acetaminophen (Lortab 5-325 mg), 1 TAB PO Q4H PRN for Pain Review of Systems As per history of present illness all other ROS negative Physical Exam Vital Signs Date Time Temp Pulse Resp B/P (MAP) Pulse Ox O2 Delivery O2 Flow Rate FiO2 09/26/16 02:30 36.6 67 18 167/96 96 09/26/16 02:01 167/96 09/26/16 01:31 162/86 09/26/16 01:20 67 18 96 09/26/16 01:18 71 18 164/81 95 Nasal Cannula 3.0 09/26/16 01:15 164/81 09/26/16 00:36 67 21 90 09/26/16 00:31 161/89 09/26/16 00:07 93 Nasal Cannula 2.0 09/26/16 00:06 91 Room Air 09/26/16 00:06 69 21 89 09/26/16 00:06 89 Room Air 09/26/16 00:01 157/86 09/26/16 00:00 63 18 91 09/25/16 23:31 158/90 09/25/16 23:30 66 19 92 09/25/16 23:25 66 18 159/86 91 09/25/16 23:23 90 Room Air 09/25/16 23:20 148/94 09/25/16 23:13 64 09/25/16 23:12 36.6 71 20 145/87 90 Room Air 09/25/16 23:12 90 Room Air General Appearance: + obese, + pertinent finding (slightly anxious, receiving a breathing treatment) Head: normocephalic Eyes: normal inspection Neck: + pertinent finding (short) Respiratory/Chest: + decreased breath sounds Cardiovascular: regular rate, rhythm Abdomen/GI: soft Extremities/Musculoskelatal: + pertinent finding (immobilization device on the left lower extremity) Neurologic/Psych: alert, + pertinent finding (coherent) Skin: normal color Diagnostics Laboratory Results Results Past 24 Hours Test 09/25/16 22:41 09/25/16 23:41 09/26/16 01:19 09/26/16 02:20 Range/Units White Blood Count 7.84 4.8-10.8 K/uL Red Blood Count 4.81 4.2-5.4 M/uL Hemoglobin 14.2 12.0-16.0 g/dL Hematocrit 42.6 37-47 % Mean Corpuscular Volume 88.6 80-100 fL Mean Corpuscular Hemoglobin 29.5 25-34 pg Mean Corpuscular Hemoglobin Concent 33.3 32-36 g/dl Platelet Count 315 130-400 K/uL Mean Platelet Volume 10.6 7.4-10.4 fL Neutrophils (%) (Auto) 70.6 % Lymphocytes (%) (Auto) 17.2 % Monocytes (%) (Auto) 8.0 % Eosinophils (%) (Auto) 3.6 % Basophils (%) (Auto) 0.3 % Neutrophils # (Auto) 5.54 1.4-6.5 K/uL Lymphocytes # (Auto) 1.35 1.2-3.4 K/uL Monocytes # (Auto) 0.63 0.11-0.59 K/uL Eosinophils # (Auto) 0.28 0-0.5 K/uL Basophils # (Auto) 0.02 0-0.2 K/uL RDW Standard Deviation 39.8 36.4-46.3 fL RDW Coefficient of Variation 12.5 11.5-14.5 % Immature Granulocyte % (Auto) 0.3 % Immature Granulocyte # (Auto) 0.02 0.00-0.02 K/uL D-Dimer 46739 0-500 ug/L FEU Sodium Level 143 136-145 mmol/L Potassium Level 3.7 3.5-5.1 mmol/L Chloride Level 108 98-107 mmol/L Carbon Dioxide Level 27 21-32 mmol/L Anion Gap 8.0 3-11 mmol/L Blood Urea Nitrogen 22 7-18 mg/dl Creatinine 1.20 0.60-1.20 mg/dl Est Creatinine Clear Calc Drug Dose 53.3 ml/min Estimated GFR () 54.5 Estimated GFR (Non- 47.1 BUN/Creatinine Ratio 18.3 10-20 Random Glucose 102 70-99 mg/dl Calcium Level 10.5 8.5-10.1 mg/dl Total Bilirubin 0.3 0.2-1 mg/dl Direct Bilirubin < 0.1 0-0.2 mg/dl Aspartate Amino Transf (AST/SGOT) 24 15-37 U/L Alanine Aminotransferase (ALT/SGPT) 31 12-78 U/L Alkaline Phosphatase 68 45-117 U/L Total Creatine Kinase 46 26-192 U/L Creatine Kinase MB < 0.5 0.5-3.6 ng/ml Creatine Kinase MB Ratio 0-3.0 Troponin I 0.023 0-0.045 ng/ml Total Protein 7.6 6.4-8.2 gm/dl Albumin 3.8 3.4-5.0 gm/dl Lipase 268 73-393 U/L Prothrombin Time 11.0 9.0-12.0 SECONDS Prothromb Time International Ratio 1.0 0.9-1.1 Activated Partial Thromboplast Time 24.3 21.0-31.0 SECONDS Partial Thromboplastin Ratio 0.9 Arterial Blood pH 7.41 7.35-7.45 Arterial Blood Partial Pressure CO2 34 35-46 mmHg Arterial Blood Partial Pressure O2 71 80-95 mm/Hg Arterial Blood HCO3 21 19-24 mmol/L Arterial Blood Oxygen Saturation 93.5 90-95 % Arterial Blood Base Excess -2.7 -9-1.8 mEq/L Arterial Blood Gas Delivery 2 LITERS Tavon Test POS POS Diagnostic Radiology CT chest initial read bilateral PE other (atelectasis as per my interpretation) EKG As per my interpretation: Rate 65, NSR, nonspecific T-wave abnormalities Impression Assessment and Plan AP Acute hypoxemic respiratory failure secondary to acute pulmonary embolism Recent left ankle surgery Failed ASA thrombo-embolic prophylaxis Hypertension, slightly elevated PCU Supplemental O2 Baseline ABG IV heparin (Orthopedic surgeon materials and corrosion engineer, Dr. Schofield, agreeable) Defer discussion regarding choice of oral anticoagulant between patient and a.m. provider TTE RE pulmonary embolism with hypoxemia rule out pulmonary hypertension/RV strain Lower extremity Dopplers rule out DVT as source of PE Orthopedics consult postop eval DVT prophylaxis, IV heparin Full code Total critical care time 40 minutes VTE Prophylaxis VTE Risk Assessment Done? Y/N: Yes Risk Level: High
[2016-09-26] MEDS ORDERED: SODIUM CHLOR 0.45% + 20MEQ KCL 1,000 ML IV ONE (03:00)
[2016-09-26] MEDS ORDERED: HEPARIN IV BOLUS 6,000 UNIT in SYRINGE 0 ML IV ONE (03:15)
[2016-09-26] MEDS: HEPARIN 25000 UNIT/ D5W 500 ML (PHARMACY PREPARED) IV PRN ×4 (03:36→21:45)
[2016-09-26] MEDS: ACETAMINOPHEN 325 MG TAB PO PRN ×3 (06:40→19:28)
--- NOTE | 2016-09-26 07:03 | DIAGNOSTIC IMAGING REPORT ---
CHEST ONE VIEW PORTABLE CLINICAL HISTORY: 66 years-old Female presenting with CHEST PAIN. TECHNIQUE: Portable upright AP view of the chest was obtained. COMPARISON: CT performed the same day and CT from 2011. FINDINGS: Cardiomediastinal silhouette normal. Minimal left apical opacity is better appreciated on subsequent CT. Pleural spaces clear. Osseous structures and upper abdomen normal. IMPRESSION: 1. Minimal left apical opacity better appreciated on subsequent CT. Electronically signed by: Zach Hathaway M.D. 09/26/2016 7:02 AM Dictated Date/Time: 09/26/2016 7:00 AM
[2016-09-26 07:39] LABS: BASO % 0.6 %; BASO ABS # 0.04 K/uL (0-0.2); COMPLETE YES; EOS % 2.1 %; IG% 0.4 %; LYMPH % 19.9 %; LYMPH ABS # 1.44 K/uL (1.2-3.4); MEAN CELL VOLUME 90.3 fL (80-100); MEAN CORPUSCULAR HEMOGLOBIN 28.5 pg (25-34); MEAN CORPUSCULAR HGB CONC 31.6 g/dl (32-36); MEAN PLATELET VOLUME 10.7 fL (7.4-10.4); MONO % 8.7 %; NEUT % 68.3 %; PLATELET COUNT 276 K/uL (130-400); RED BLOOD COUNT 4.21 M/uL (4.2-5.4); WHITE BLOOD COUNT 7.22 K/uL (4.8-10.8)
--- NOTE | 2016-09-26 07:51 | DIAGNOSTIC IMAGING REPORT ---
(CHEST FOR PE) ANGIO WITH CT DOSE: 595.00 mGycm HISTORY: 66-year-old female presents with acute shortness of breath and recent surgery. History of blood clots TECHNIQUE: Multiple CTA images of the chest were obtained after the intravenous administration of 94 Optiray 320. Coronal and sagittal MIPS were obtained from the axial data set and were submitted for review. COMPARISON: Portable chest radiograph of same day chest CT 05/16/2011. FINDINGS: CTA: There is normal size of the heart. There is mild straightening of the intraventricular septum. Thoracic aorta is normal in both course and caliber without aneurysm or dissection. Multiple bilateral soft tissue attenuating filling defects are present within the pulmonary arterial tree compatible with thromboembolic disease. For example large embolus is seen within the distal right main pulmonary artery extending into the upper and lower lobar and segmental branches. Additional emboli involve the left lower lobar and segmental branches with smaller emboli seen extending into the segmental lingular branches. CT CHEST: Thyroid appears normal. No pathologically enlarged lymph nodes by CT size criteria. Mildly prominent subcarinal lymph nodes are nonspecific and likely reactive. No pneumothorax. Thin-walled cystic changes are scattered within the lungs bilaterally. There is a focal ill-defined groundglass opacity of the apical posterior segment left upper lobe. No large pulmonary infarction is identified. Small pericardial lymph node involves the right minor fissure. No pleural effusion. There is diffuse fatty infiltration of the liver. Soft tissues are unremarkable. 45% anterior endplate compression deformity of the T12 vertebral body is noted, unchanged from 05/16/2011. IMPRESSION: 1. Extensive bilateral pulmonary emboli bilaterally as above. Straightening of the intraventricular septum raises the concern for possible associated right heart strain. 2. Focal groundglass opacity of the left upper lobe may reflect atelectasis, pneumonitis or small pulmonary infarction. 3. Diffuse fatty infiltration of the liver. 4. Chronic compression deformity of T12. Findings were discussed with the statrad radiologist at 01:23 hours with results transmitted at 01:52 The above report was generated using voice recognition software. It may contain grammatical, syntax or spelling errors. Electronically signed by: Ras Zavala M.D. 09/26/2016 7:50 AM Dictated Date/Time: 09/26/2016 7:08 AM
[2016-09-26] MEDS: FENOFIBRATE 145 MG TAB PO SCH (08:09)
[2016-09-26] MEDS: hydrOXYzine HCL 25 MG TAB PO SCH (08:09)
[2016-09-26] MEDS: LEVOTHYROXINE 112 MCG TAB PO SCH (08:09)
[2016-09-26] MEDS: RANITIDINE HCL 150 MG TAB PO SCH ×2 (08:09→19:28)
[2016-09-26 08:18] LABS: BUN/CREATININE RATIO 17.1 (10-20); CREATININE 1.2 mg/dl (0.60-1.20); POTASSIUM 4.2 mmol/L (3.5-5.1)
[2016-09-26] MEDS ORDERED: PERFLUTREN LIPID MICROSPHERE (DEFINITY) IV ONE (08:44)
--- NOTE | 2016-09-26 09:07 | Orthopedic Consultation ---
Orthopedic Consultation Date of Consultation: Sep 26, 2016. Attending Physician: Fina Canales M.D. Reason for Consultation: Current pulmonary embolism S/P Left ankle ORIF History of Present Illness Donna is a 66 y/o female complaining of chest pain and shortness of breath. She is s/p Left ankle ORIF trimalleolar fracture completed by Dr. Acosta Vaz MD from [facility] on 09/17/16. She was utilizing Aspirin 325mg BID for DVT prophylaxis. Denied pain in the left calf. Denies numbness and tingling in the lower extremities. Past Medical/Surgical History Medical Problems: (1) Trimalleolar fracture of ankle, closed Status: Acute Family History Diabetes mellitus Gallbladder disease Social History Smoking Status: Current Every Day Smoker Marital Status: Housing Status: lives with significant other Occupation Status: employed Allergies Coded Allergies: Amoxicillin (Verified Allergy, Intermediate, DIARRHEA, 09/25/16) Sulfamethoxazole w/Trimethoprim (Verified Allergy, Intermediate, HEADACHES , 09/25/16) Adhesives (Verified Allergy, Unknown, BURNING RASH, 09/25/16) Codeine (Verified Allergy, Unknown, HEADACHES OR NAUSEA -- UNSURE, 09/25/16 ) Gemfibrozil (Verified Allergy, Unknown, UNKNOWN, 09/25/16) Minocycline (Verified Allergy, Unknown, ., 09/25/16) Nitrofurantoin (Verified Allergy, Unknown, UNKNOWN, 09/25/16) Morphine (Verified Adverse Reaction, Severe, abdominal and neck pain, nausea, flushed, 09/26/16) POLLEN (Verified Adverse Reaction, Unknown, UNKNOWN, 09/25/16) Uncoded Allergies: MOLD (Adverse Reaction, Unknown, UNKNOWN, 12/21/13) Home Medications Scheduled Aspirin Enteric Coated (Ecotrin Or Generic), 325 MG PO BID Atenolol (Tenormin), 50 MG PO QAM Calcium Carbonate-Vitamin D (Calcium 600+D3), 1 TAB PO BID Fenofibrate (Tricor), 160 MG PO QAM Fish Oil ([place]-3), 1 CAP PO BID Hydroxyzine Hcl (Atarax), 25 MG PO QAM Levothyroxine Sodium (Levothyroxine Sodium), 112 MCG PO QAM Ranitidine (Zantac), 150 MG PO BID Scheduled PRN Acetaminophen (Tylenol), 1,000 MG PO Q6H PRN for Pain Hydrocodone-Acetaminophen (Lortab 5-325 mg), 1 TAB PO Q4H PRN for Pain Current Inpatient Medications Current Inpatient Medications Medications (Trade) Dose Ordered Sig/Lucho Route Start Time Stop Time Status Last Admin Dose Admin Ioversol (Optiray 320) 100 ml UD PRN IV 09/26/16 00:15 09/30/16 00:14 Potassium Chloride/Sodium Chloride 1,000 ml @ 75 mls/hr [id number] ONCE IV 09/26/16 03:00 09/26/16 16:19 09/26/16 03:34 75 MLS/HR Acetaminophen (Tylenol Tab) 650 mg Q4H PRN PO 09/26/16 02:30 10/26/16 02:29 09/26/16 06:40 650 MG Hydromorphone HCl (Dilaudid Inj) 0.5 mg Q3H PRN IV 09/26/16 02:30 10/10/16 02:29 Ondansetron HCl (Zofran Inj) 4 mg Q6H PRN IV 09/26/16 02:30 10/26/16 02:29 Atenolol (Tenormin Tab) 50 mg QAM PO 09/27/16 09:00 10/27/16 08:59 Hydroxyzine HCl (Vistaril Tab) 25 mg QAM PO 09/26/16 09:00 10/26/16 08:59 09/26/16 08:09 25 MG Levothyroxine Sodium (Synthroid Tab) 112 mcg DAILYBB PO 09/26/16 06:00 10/26/16 05:59 09/26/16 08:09 112 MCG Ranitidine HCl (zANTac TAB) 150 mg BID PO 09/26/16 09:00 10/26/16 08:59 09/26/16 08:09 150 MG Fenofibrate (Tricor Tab) 145 mg QAM PO 09/26/16 09:00 10/26/16 08:59 09/26/16 08:09 145 MG Acetaminophen/ Hydrocodone Bitart ([place] 5/325 Tab) 1 tab Q4H PRN PO 09/26/16 02:30 10/10/16 02:29 Albuterol/ Ipratropium (Duoneb) 3 ml Q2H PRN INH 09/26/16 02:30 10/26/16 02:29 Heparin Sodium (Porcine) 17227 unit/Dextrose 500 ml @ 26 mls/hr [id number] PRN IV 09/26/16 03:15 10/26/16 03:14 09/26/16 03:36 26 MLS/HR Review of Systems Constitutional: No fever, No chills, No sweats, No weight loss, No weakness, No fatigue, No problem reported Respiratory: + shortness of breath (improving ) Cardiovascular: + chest pain (improving) Abdomen: No pain, No nausea, No vomiting, No diarrhea, No constipation, No GI bleeding, No problem reported Musculoskeletal: No joint pain, No muscle pain, No swelling, No calf pain, No problem reported Neurologic: No memory loss, No paralysis, No weakness, No numbness/tingling, No vertigo, No balance problems, No problem reported Integumentary: No rash, No itch, No new/changing skin lesions, No color change , No bleeding, No problem reported Physical Exam Date Time Temp Pulse Resp B/P (MAP) Pulse Ox O2 Delivery O2 Flow Rate FiO2 09/26/16 08:11 36.7 64 16 121/63 (82) 94 09/26/16 03:03 36.5 87 24 157/78 94 Nasal Cannula 3.0 09/26/16 02:30 36.6 67 18 167/96 96 09/26/16 02:01 167/96 09/26/16 01:31 162/86 09/26/16 01:20 67 18 96 09/26/16 01:18 71 18 164/81 95 Nasal Cannula 3.0 09/26/16 01:15 164/81 09/26/16 00:36 67 21 90 09/26/16 00:31 161/89 09/26/16 00:07 93 Nasal Cannula 2.0 09/26/16 00:06 91 Room Air 09/26/16 00:06 69 21 89 09/26/16 00:06 89 Room Air 09/26/16 00:01 157/86 09/26/16 00:00 63 18 91 09/25/16 23:31 158/90 09/25/16 23:30 66 19 92 09/25/16 23:25 66 18 159/86 91 09/25/16 23:23 90 Room Air 09/25/16 23:20 148/94 09/25/16 23:13 64 09/25/16 23:12 36.6 71 20 145/87 90 Room Air 09/25/16 23:12 90 Room Air Resting comfortably Pleasant and smiling during conversation General Appearance: WD/WN, no apparent distress Head: normocephalic, atraumatic Eyes: normal inspection ENT: hearing grossly normal Extremities/Musculoskelatal: normal inspection, no calf tenderness, normal capillary refill, no pedal edema, normal range of motion, non-tender, + pertinent finding (left ankle incision and surgical anushka noted post- operatively, minimal ecchymosis and erythema, no significant tyson-incisional drainage, her fracture boot was in place ) Neurologic/Psych: no motor/sensory deficits, alert, normal mood/affect, oriented x 3 Skin: normal color, warm/dry, no rash Laboratory Results Last 24 Hours Test 09/25/16 22:41 09/25/16 23:41 09/26/16 02:18 09/26/16 02:20 White Blood Count 7.84 K/uL Red Blood Count 4.81 M/uL Hemoglobin 14.2 g/dL Hematocrit 42.6 % Mean Corpuscular Volume 88.6 fL Mean Corpuscular Hemoglobin 29.5 pg Mean Corpuscular Hemoglobin Concent 33.3 g/dl Platelet Count 315 K/uL Mean Platelet Volume 10.6 fL Neutrophils (%) (Auto) 70.6 % Lymphocytes (%) (Auto) 17.2 % Monocytes (%) (Auto) 8.0 % Eosinophils (%) (Auto) 3.6 % Basophils (%) (Auto) 0.3 % Neutrophils # (Auto) 5.54 K/uL Lymphocytes # (Auto) 1.35 K/uL Monocytes # (Auto) 0.63 K/uL Eosinophils # (Auto) 0.28 K/uL Basophils # (Auto) 0.02 K/uL RDW Standard Deviation 39.8 fL RDW Coefficient of Variation 12.5 % Immature Granulocyte % (Auto) 0.3 % Immature Granulocyte # (Auto) 0.02 K/uL D-Dimer 13361 ug/L FEU Sodium Level 143 mmol/L Potassium Level 3.7 mmol/L Chloride Level 108 mmol/L Carbon Dioxide Level 27 mmol/L Anion Gap 8.0 mmol/L Blood Urea Nitrogen 22 mg/dl Creatinine 1.20 mg/dl Est Creatinine Clear Calc Drug Dose 53.3 ml/min Estimated GFR () 54.5 Estimated GFR (Non- 47.1 BUN/Creatinine Ratio 18.3 Random Glucose 102 mg/dl Calcium Level 10.5 mg/dl Total Bilirubin 0.3 mg/dl Direct Bilirubin < 0.1 mg/dl Aspartate Amino Transf (AST/SGOT) 24 U/L Alanine Aminotransferase (ALT/SGPT) 31 U/L Alkaline Phosphatase 68 U/L Total Creatine Kinase 46 U/L Creatine Kinase MB < 0.5 ng/ml Creatine Kinase MB Ratio Troponin I 0.023 ng/ml Total Protein 7.6 gm/dl Albumin 3.8 gm/dl Lipase 268 U/L Prothrombin Time 11.0 SECONDS Prothromb Time International Ratio 1.0 Activated Partial Thromboplast Time 24.3 SECONDS Partial Thromboplastin Ratio 0.9 Arterial Blood pH 7.41 Arterial Blood Partial Pressure CO2 34 mmHg Arterial Blood Partial Pressure O2 71 mm/Hg Arterial Blood HCO3 21 mmol/L Arterial Blood Oxygen Saturation 93.5 % Arterial Blood Base Excess -2.7 mEq/L Arterial Blood Gas Delivery 2 LITERS Tavon Test POS Test 09/26/16 07:08 White Blood Count 7.22 K/uL Red Blood Count 4.21 M/uL Hemoglobin 12.0 g/dL Hematocrit 38.0 % Mean Corpuscular Volume 90.3 fL Mean Corpuscular Hemoglobin 28.5 pg Mean Corpuscular Hemoglobin Concent 31.6 g/dl Platelet Count 276 K/uL Mean Platelet Volume 10.7 fL Neutrophils (%) (Auto) 68.3 % Lymphocytes (%) (Auto) 19.9 % Monocytes (%) (Auto) 8.7 % Eosinophils (%) (Auto) 2.1 % Basophils (%) (Auto) 0.6 % Neutrophils # (Auto) 4.93 K/uL Lymphocytes # (Auto) 1.44 K/uL Monocytes # (Auto) 0.63 K/uL Eosinophils # (Auto) 0.15 K/uL Basophils # (Auto) 0.04 K/uL RDW Standard Deviation 42.0 fL RDW Coefficient of Variation 12.8 % Immature Granulocyte % (Auto) 0.4 % Immature Granulocyte # (Auto) 0.03 K/uL Sodium Level 143 mmol/L Potassium Level 4.2 mmol/L Chloride Level 109 mmol/L Carbon Dioxide Level 27 mmol/L Anion Gap 7.0 mmol/L Blood Urea Nitrogen 21 mg/dl Creatinine 1.20 mg/dl Est Creatinine Clear Calc Drug Dose 53.1 ml/min Estimated GFR () 54.5 Estimated GFR (Non- 47.1 BUN/Creatinine Ratio 17.1 Random Glucose 103 mg/dl Calcium Level 9.0 mg/dl Troponin I 0.018 ng/ml Assessment & Plan ASSESSMENT: 1) S/P Left ankle ORIF 2) Pulmonary embolism PLAN: Continue post-operative care regarding her left lower extremity, ice, elevate, fracture boot during transportation. Continue medical care regarding PE. Continue orders and meds per medicine. Discussed patient's care with Dr. Vaz , whom performed her left ankle surgery. We will continue to monitor. If the patient is still admitted Saturday09/28/16, we may potentially remove anushka, which would be done by one of the [facility] PA's. Any other orthopedic questions or concerns please notify [facility] at [phone], thank you.
[2016-09-26 10:16] LABS: PARTIAL THROMBOPLASTIN RATIO 1.9
--- NOTE | 2016-09-26 10:46 | ECHOCARDIOGRAM REPORT ---
*NOTICE TO RECEIVING [employer] This information is strictly Confidential and protected under [place] law. [place] law prohibits you from making any further disclosure of this information unless further disclosure is expressly permitted by the written consent of the person to whom it pertains or is authorized by law. A general authorization for the release of medical or other information is not sufficient for this purpose. Hospital accepts no responsibility if the information is made available to any other person, INCLUDING THE PATIENT. Interpretation Summary * Name: ALMA ROSA HILL Study Date: 09/26/2016 07:56 AM BP: 157/78 mmHg * Patient Location: C.2T\S\S242\S\1 HR: 58 * : 1950 (M/d/yyyy) Gender: Female Height: 64 in * Age: 66 yrs Ethnicity: [place] Weight: 222 lb * Ordering Physician: Quintin Flynn * Referring Physician: Self, Referred * Performed By: Courtney Britton RDCS * * Reason For Study: SOB * BSA: 2.0 m2 * The study was technically limited. * Compared to prior study, changes are noted. * -- Conclusions -- * Ejection Fraction = 60-65%. * The right ventricle is not well visualized. * The right ventricle appears mildly dialted in limited views. * The right ventricular function is qualitatively normal in limited views. * There is mild tricuspid regurgitation. * The estimated systolic PAP is 60mmhg. Procedure Details * A contrast injection of Definity was performed to improve assessment of LV function. * Contrast was injected into an intravenous site in the left arm. * One vial of Definity ultrasound contrast was diluted in normal saline to a total volume of 10 ml. A total of '2' ml of solution was administered during imaging. * Lot # [id number] of Definity utilized for procedure. * Expiration date OCT 26. * The attending nurse who injected the contrast agent was VIRY MAGANA RN. * A complete two-dimensional transthoracic echocardiogram was performed (2D, M-mode, Doppler and color flow Doppler). Left Ventricle * The left ventricle is normal in size. * There is no thrombus. * There is normal left ventricular wall thickness. * Ejection Fraction = 60-65%. * Left ventricular systolic function is normal. * The left ventricular wall motion is normal. Right Ventricle * The right ventricle is not well visualized. * The right ventricle appears mildly dialted in limited views. * The right ventricular function is qualitatively normal in limited views. Atria * The left atrial size is normal. * Right atrial size is normal. * There is no evidence of atrial septal defect, but resolution does not allow assessment for a patent foramen ovale. Mitral Valve * The mitral valve is normal. * There is no mitral valve stenosis. * Significant mitral regurgitation is absent. Tricuspid Valve * The tricuspid valve is normal. * There is no tricuspid stenosis. * There is mild tricuspid regurgitation. * The estimated systolic PAP is 60mmhg. Aortic Valve * The aortic valve is trileaflet. * Aortic stenosis is absent. * There is no significant aortic regurgitation. Pulmonic Valve * The pulmonary valve is inadequately visualized, but the Doppler data is adequate for interpretation. * There is no pulmonic valvular stenosis. * Trace pulmonic valvular regurgitation. Great Vessels * The aortic root and proximal ascending aorta are normal sized. Pericardium/Pleural * There is no pericardial effusion. Great Vessels * IVC was not visualized. Left Ventricular Diastolic Function * Pulse wave TDI of the anterior and posterior mitral annulas demonstrates abnormal LV relaxation MMode 2D Measurements and Calculations IVSd 1.4 cm IVSs 1.8 cm LVIDd 4.1 cm LVIDs 2.8 cm LVPWd 1.0 cm LVPWs 1.2 cm IVS/LVPW 1.4 FS 31.4 % EDV(Teich) 72.9 ml ESV(Teich) 29.3 ml EF(Teich) 59.7 % EDV(cubed) 67.3 ml ESV(cubed) 21.8 ml EF(cubed) 67.7 % % IVS thick 23.4 % % LVPW thick 19.8 % LV mass(C)d 177.6 grams LV mass(C)dI 86.9 grams/m\S\2 LV mass(C)s 145.5 grams LV mass(C)sI 71.2 grams/m\S\2 SV(Teich) 43.5 ml SI(Teich) 21.3 ml/m\S\2 SV(cubed) 45.6 ml SI(cubed) 22.3 ml/m\S\2 Ao root diam 2.8 cm Ao root area 6.3 cm\S\2 LA dimension 3.6 cm LA/Ao 1.3 LVAd ap4 31.2 cm\S\2 LVLd ap4 8.1 cm EDV(MOD-sp4) 98.9 ml LVAs ap4 17.1 cm\S\2 LVLs ap4 6.4 cm ESV(MOD-sp4) 38.2 ml EF(MOD-sp4) 61.4 % LVAd ap2 31.8 cm\S\2 LVLd ap2 8.3 cm EDV(MOD-sp2) 101.0 ml LVAs ap2 16.3 cm\S\2 LVLs ap2 6.4 cm ESV(MOD-sp2) 34.5 ml EF(MOD-sp2) 65.8 % SV(MOD-sp4) 60.7 ml SI(MOD-sp4) 29.7 ml/m\S\2 SV(MOD-sp2) 66.5 ml SI(MOD-sp2) 32.5 ml/m\S\2 Doppler Measurements and Calculations Ao V2 max 133.6 cm/sec Ao max PG 7.1 mmHg Ao max PG (full) 2.4 mmHg LV V1 max PG 4.7 mmHg LV V1 max 108.7 cm/sec TR max teagan 378.6 cm/sec
--- NOTE | 2016-09-26 12:49 | DIAGNOSTIC IMAGING REPORT ---
ULTRASOUND VENOUS DOPPLER LWR EXT BILA CLINICAL HISTORY: Pulmonary embolism LEG SWELLING COMPARISON STUDY: No previous studies for comparison. FINDINGS: On the right, no intraluminal thrombus was visualized. The veins are fully compressible from the groin through the popliteal vein. There is normal color-flow the proximal trifurcation veins of the right calf. In the left, no thrombus is visualized in the left common femoral or superficial femoral veins. There is thrombus within the left popliteal vein which appears acute. There is left peroneal vein thrombus. IMPRESSION: Acute left lower extremity DVT with involvement of the popliteal and peroneal veins Electronically signed by: Chon Medina M.D. 09/26/2016 12:48 PM Dictated Date/Time: 09/26/2016 12:47 PM
--- NOTE | 2016-09-26 18:06 | Progress Note ---
Medicine Progress Note Date & Time of Visit: Sep 26, 2016 at 17:35. Subjective Pt was seen and examined Sitting in bed with no acute distress with family at bedside Pt said that she is feeling slightly better she feels a pressure in her sternum area breathing is slightly improved Denies any chest pain, palpitation, dizziness Objective Last 8 Hrs Date Time Temp Pulse Resp B/P (MAP) Pulse Ox O2 Delivery O2 Flow Rate FiO2 09/26/16 16:00 Nasal Cannula 4.0 09/26/16 15:19 36.7 58 19 124/74 (91) 94 Nasal Cannula 4.0 09/26/16 12:00 92 Nasal Cannula 4.0 09/26/16 11:59 36.6 64 16 129/78 (95) 92 Room Air Physical Exam: General- No acute distress Head- atraumatic Eyes- PERRL, EOMI ENT- oropharynx clear Neck- supple, no JVD Lungs- clear to auscultation Heart- regular rhythm; no murmur Abdomen- normal bowel sounds, soft Extremities- no calf tenderness, left fracture boot in place Neuro- alert, oriented x 3; PERRL, EOMI Skin- warm & dry Laboratory Results: Last 24 Hours Test 09/25/16 22:41 09/25/16 23:41 09/26/16 02:18 09/26/16 02:20 White Blood Count 7.84 K/uL Red Blood Count 4.81 M/uL Hemoglobin 14.2 g/dL Hematocrit 42.6 % Mean Corpuscular Volume 88.6 fL Mean Corpuscular Hemoglobin 29.5 pg Mean Corpuscular Hemoglobin Concent 33.3 g/dl Platelet Count 315 K/uL Mean Platelet Volume 10.6 fL Neutrophils (%) (Auto) 70.6 % Lymphocytes (%) (Auto) 17.2 % Monocytes (%) (Auto) 8.0 % Eosinophils (%) (Auto) 3.6 % Basophils (%) (Auto) 0.3 % Neutrophils # (Auto) 5.54 K/uL Lymphocytes # (Auto) 1.35 K/uL Monocytes # (Auto) 0.63 K/uL Eosinophils # (Auto) 0.28 K/uL Basophils # (Auto) 0.02 K/uL RDW Standard Deviation 39.8 fL RDW Coefficient of Variation 12.5 % Immature Granulocyte % (Auto) 0.3 % Immature Granulocyte # (Auto) 0.02 K/uL D-Dimer 98874 ug/L FEU Sodium Level 143 mmol/L Potassium Level 3.7 mmol/L Chloride Level 108 mmol/L Carbon Dioxide Level 27 mmol/L Anion Gap 8.0 mmol/L Blood Urea Nitrogen 22 mg/dl Creatinine 1.20 mg/dl Est Creatinine Clear Calc Drug Dose 53.3 ml/min Estimated GFR () 54.5 Estimated GFR (Non- 47.1 BUN/Creatinine Ratio 18.3 Random Glucose 102 mg/dl Calcium Level 10.5 mg/dl Total Bilirubin 0.3 mg/dl Direct Bilirubin < 0.1 mg/dl Aspartate Amino Transf (AST/SGOT) 24 U/L Alanine Aminotransferase (ALT/SGPT) 31 U/L Alkaline Phosphatase 68 U/L Total Creatine Kinase 46 U/L Creatine Kinase MB < 0.5 ng/ml Creatine Kinase MB Ratio Troponin I 0.023 ng/ml Total Protein 7.6 gm/dl Albumin 3.8 gm/dl Lipase 268 U/L Prothrombin Time 11.0 SECONDS Prothromb Time International Ratio 1.0 Activated Partial Thromboplast Time 24.3 SECONDS Partial Thromboplastin Ratio 0.9 Arterial Blood pH 7.41 Arterial Blood Partial Pressure CO2 34 mmHg Arterial Blood Partial Pressure O2 71 mm/Hg Arterial Blood HCO3 21 mmol/L Arterial Blood Oxygen Saturation 93.5 % Arterial Blood Base Excess -2.7 mEq/L Arterial Blood Gas Delivery 2 LITERS Tavon Test POS Test 09/26/16 07:08 09/26/16 09:49 White Blood Count 7.22 K/uL Red Blood Count 4.21 M/uL Hemoglobin 12.0 g/dL Hematocrit 38.0 % Mean Corpuscular Volume 90.3 fL Mean Corpuscular Hemoglobin 28.5 pg Mean Corpuscular Hemoglobin Concent 31.6 g/dl Platelet Count 276 K/uL Mean Platelet Volume 10.7 fL Neutrophils (%) (Auto) 68.3 % Lymphocytes (%) (Auto) 19.9 % Monocytes (%) (Auto) 8.7 % Eosinophils (%) (Auto) 2.1 % Basophils (%) (Auto) 0.6 % Neutrophils # (Auto) 4.93 K/uL Lymphocytes # (Auto) 1.44 K/uL Monocytes # (Auto) 0.63 K/uL Eosinophils # (Auto) 0.15 K/uL Basophils # (Auto) 0.04 K/uL RDW Standard Deviation 42.0 fL RDW Coefficient of Variation 12.8 % Immature Granulocyte % (Auto) 0.4 % Immature Granulocyte # (Auto) 0.03 K/uL Sodium Level 143 mmol/L Potassium Level 4.2 mmol/L Chloride Level 109 mmol/L Carbon Dioxide Level 27 mmol/L Anion Gap 7.0 mmol/L Blood Urea Nitrogen 21 mg/dl Creatinine 1.20 mg/dl Est Creatinine Clear Calc Drug Dose 53.1 ml/min Estimated GFR () 54.5 Estimated GFR (Non- 47.1 BUN/Creatinine Ratio 17.1 Random Glucose 103 mg/dl Calcium Level 9.0 mg/dl Troponin I 0.018 ng/ml Pro-B-Type Natriuretic Peptide 1549 pg/ml Activated Partial Thromboplast Time 49.9 SECONDS Partial Thromboplastin Ratio 1.9 Assessment & Plan Acute B/L PE Acute LLE DVT Present with chest pain and hypoxia on admission Provoked by recent orthopedic surgery in the LLE LE venous Doppler showed acute left lower extremity DVT with involvement of the popliteal and peroneal veins CTA chest showed Extensive bilateral pulmonary emboli bilaterally associated right heart strain. On heparin drip Continue oxygen supplement will need to be anticoagulate for at least 3 months Discussed with pt about anticoagulant with Coumadin vs NOAC discussed about bleeding risks Pt will decide tomorrow about anticoagulant Continue incentive spirometry hypercoagulable workup sent Pulmonary on board Echo done showed * Ejection Fraction = 60-65%. * The right ventricle is not well visualized. * The right ventricle appears mildly dialted in limited views. * The right ventricular function is qualitatively normal in limited views. * There is mild tricuspid regurgitation. * The estimated systolic PAP is 60mmhg. S/P Left Ankle Surgery Failed ASA thrombo-embolic prophylaxis Ortho on board Plan to removed staple on Saturday if she is still in the hospital Continue fracture boot during transportation Hypertension Stable DVT px on heparin subq CODE STATUS FULL CODE Consultants: Pulmonary Ortho Current Inpatient Medications: Current Inpatient Medications Medications (Trade) Dose Ordered Sig/Lucho Route Start Time Stop Time Status Last Admin Dose Admin Ioversol (Optiray 320) 100 ml UD PRN IV 09/26/16 00:15 09/30/16 00:14 Acetaminophen (Tylenol Tab) 650 mg Q4H PRN PO 09/26/16 02:30 10/26/16 02:29 09/26/16 14:03 650 MG Hydromorphone HCl (Dilaudid Inj) 0.5 mg Q3H PRN IV 09/26/16 02:30 10/10/16 02:29 Ondansetron HCl (Zofran Inj) 4 mg Q6H PRN IV 09/26/16 02:30 10/26/16 02:29 Atenolol (Tenormin Tab) 50 mg QAM PO 09/27/16 09:00 10/27/16 08:59 Hydroxyzine HCl (Vistaril Tab) 25 mg QAM PO 09/26/16 09:00 10/26/16 08:59 09/26/16 08:09 25 MG Levothyroxine Sodium (Synthroid Tab) 112 mcg DAILYBB PO 09/26/16 06:00 10/26/16 05:59 09/26/16 08:09 112 MCG Ranitidine HCl (zANTac TAB) 150 mg BID PO 09/26/16 09:00 10/26/16 08:59 09/26/16 08:09 150 MG Fenofibrate (Tricor Tab) 145 mg QAM PO 09/26/16 09:00 10/26/16 08:59 09/26/16 08:09 145 MG Acetaminophen/ Hydrocodone Bitart ([place] 5/325 Tab) 1 tab Q4H PRN PO 09/26/16 02:30 10/10/16 02:29 Albuterol/ Ipratropium (Duoneb) 3 ml Q2H PRN INH 09/26/16 02:30 10/26/16 02:29 Heparin Sodium (Porcine) 92895 unit/Dextrose 500 ml @ 26 mls/hr [id number] PRN IV 09/26/16 03:15 10/26/16 03:14 09/26/16 03:36 26 MLS/HR
--- NOTE | 2016-09-26 21:43 | Pulmonary Consultation ---
History General Date of Service: Sep 26, 2016. Stated Complaint: Respiratory Failure, Acute HPI The patient is a 66 year old female who presents to [facility] with complaints of Respiratory Failure, Acute. The patient's primary care provider is Neha Aguirre. This patient is a 66-year-old female who presented to the ER with 1 day history of acute chest pain/epigastricand shortness of breath. She is status post left ankle ORIF for trimalleolar fracture done on 09/17/2016. She was prescribed aspirin 325 twice a day for DVT prophylaxis. Vital she denies any fevers, chills, cough or hemoptysis. Vital signs afebrile 36.6C, pulse 71 beats per minute and respiratory rate 20 blood pressure 135/87 pulse 90% on room air. A d-dimer was done and was 13,620. Troponins [address] chest showed bilateral pulmonary emboli with straightening of the intraventricular septum suspicious for right heart strain as well as focal groundglass opacity of left upper lobe. ABG showed pH of 7.41, PCO2 of 34, PaO2 of 71, bicarbonate of 21 and saturating 93.5% on 2 L nasal cannula. She was started on heparin for anticoagulation and admitted for management of pulmonary embolism. Since admission her vital signs have been stable and she has been saturating well on nasal cannula. A hypercoagulable workup has been sent. Review of Systems Cardiovascular: reports: chest pain, chest pressure Respiratory: reports: as stated in HPI, shortness of breath, denies: cough, wheezing, sputum production, hemoptysis All Other Symptoms All Other Systems: Reviewed and Negative Past Medical History Past Medical History: Gastric esophageal reflux disease Hyperlipidemia Hypothyroidism Past Surgical History: Hysterectomy Cholecystectomy Recent orthopedic surgery Family History Diabetes mellitus Gallbladder disease Denies tobacco use, alcohol or illicit drug use Social History Denies tobacco use, alcohol or illicit drug use Hx Tobacco Use In Past Year?: No Smoking Status: Current Every Day Smoker Alcohol: no current use Drug Use: none Marital status: Occupational Status: employed Immunizations History of Influenza Vaccine: Yes History of Tetanus Vaccine?: Yes History of Pneumococcal: No History of Hepatitis B Vaccine: No History of MDRO History of MDRO: No Allergies Coded Allergies: Amoxicillin (Verified Allergy, Intermediate, DIARRHEA, 09/25/16) Sulfamethoxazole w/Trimethoprim (Verified Allergy, Intermediate, HEADACHES , 09/25/16) Adhesives (Verified Allergy, Unknown, BURNING RASH, 09/25/16) Codeine (Verified Allergy, Unknown, HEADACHES OR NAUSEA -- UNSURE, 09/25/16 ) Gemfibrozil (Verified Allergy, Unknown, UNKNOWN, 09/25/16) Minocycline (Verified Allergy, Unknown, ., 09/25/16) Nitrofurantoin (Verified Allergy, Unknown, UNKNOWN, 09/25/16) Morphine (Verified Adverse Reaction, Severe, abdominal and neck pain, nausea, flushed, 09/26/16) POLLEN (Verified Adverse Reaction, Unknown, UNKNOWN, 09/25/16) Uncoded Allergies: MOLD (Adverse Reaction, Unknown, UNKNOWN, 12/21/13) Current Medications Reported Home Medications Medications Dose Route/Sig Max Daily Dose Days Date Category Dose Instructions Lortab 5-325 mg (Hydrocodone-Acetaminophen) 1 Tab Tab 1 Tab PO Q4H PRN 09/25/16 Reported Ecotrin Or Generic (Aspirin) 325 Mg Ectab 325 Mg PO BID 09/25/16 Reported "SINCE SURGERY TO PREVENT BLOOD CLOTS". Tylenol (Acetaminophen) 500 Mg Tab 1,000 Mg PO Q6H PRN 09/13/16 Reported Zantac (Ranitidine HCl) 150 Mg Tab 150 Mg PO BID 09/09/16 Reported Tenormin (Atenolol) 50 Mg Tab 50 Mg PO QAM 09/09/16 Reported Calcium 600+D3 (Calcium Carbonate-Vitamin D) 1 Tab Tab 1 Tab PO BID 09/16/14 Reported Levothyroxine Sodium 112 Mcg Tab 112 Mcg PO QAM 09/16/14 Reported Atarax (Hydroxyzine Hcl) 25 Mg Tab 25 Mg PO QAM 09/16/14 Reported Brandon-3 (Fish Oil) 1 Ea Cap 1 Cap PO BID 05/16/11 Reported Tricor (Fenofibrate) 160 Mg Tab 160 Mg PO QAM 07/03/08 Reported Physical Physical Exam Vital Signs: Date Time Temp Pulse Resp B/P (MAP) Pulse Ox O2 Delivery O2 Flow Rate FiO2 09/26/16 12:00 92 Nasal Cannula 4.0 09/26/16 11:59 36.6 64 16 129/78 (95) 92 Room Air 09/26/16 08:11 36.7 64 16 121/63 (82) 94 09/26/16 08:00 Nasal Cannula 4.0 09/26/16 03:03 36.5 87 24 157/78 94 Nasal Cannula 3.0 09/26/16 02:30 36.6 67 18 167/96 96 09/26/16 02:01 167/96 09/26/16 01:31 162/86 09/26/16 01:20 67 18 96 09/26/16 01:18 71 18 164/81 95 Nasal Cannula 3.0 09/26/16 01:15 164/81 09/26/16 00:36 67 21 90 09/26/16 00:31 161/89 09/26/16 00:07 93 Nasal Cannula 2.0 09/26/16 00:06 91 Room Air 09/26/16 00:06 69 21 89 09/26/16 00:06 89 Room Air 09/26/16 00:01 157/86 09/26/16 00:00 63 18 91 09/25/16 23:31 158/90 09/25/16 23:30 66 19 92 09/25/16 23:25 66 18 159/86 91 09/25/16 23:23 90 Room Air 09/25/16 23:20 148/94 09/25/16 23:13 64 09/25/16 23:12 36.6 71 20 145/87 90 Room Air 09/25/16 23:12 90 Room Air Head: normocephalic, atraumatic Skin: No skin rashes Eyes: normal inspection, EOMI, sclerae normal ENT: normal ENT inspection, pharynx normal Neck: supple, no adenopathy, trachea midline Respiratory/Chest: Good air entry bilaterally, no crackles or wheezes Cardiovascular: regular rate, rhythm, no edema, no murmur Abdomen / GI: normal bowel sounds, non tender, obese Back: Intact Extremities: Left leg in cast, right lower extremity with compression stockings , No cyanosis or clubbing bilaterally. Neurologic/Psych: no motor/sensory deficits, awake alert oriented 3 Diagnostics Labs Results Past 24 Hours Test 09/25/16 22:41 09/25/16 23:41 09/26/16 02:18 09/26/16 02:20 Range/Units White Blood Count 7.84 4.8-10.8 K/uL Red Blood Count 4.81 4.2-5.4 M/uL Hemoglobin 14.2 12.0-16.0 g/dL Hematocrit 42.6 37-47 % Mean Corpuscular Volume 88.6 80-100 fL Mean Corpuscular Hemoglobin 29.5 25-34 pg Mean Corpuscular Hemoglobin Concent 33.3 32-36 g/dl Platelet Count 315 130-400 K/uL Mean Platelet Volume 10.6 7.4-10.4 fL Neutrophils (%) (Auto) 70.6 % Lymphocytes (%) (Auto) 17.2 % Monocytes (%) (Auto) 8.0 % Eosinophils (%) (Auto) 3.6 % Basophils (%) (Auto) 0.3 % Neutrophils # (Auto) 5.54 1.4-6.5 K/uL Lymphocytes # (Auto) 1.35 1.2-3.4 K/uL Monocytes # (Auto) 0.63 0.11-0.59 K/uL Eosinophils # (Auto) 0.28 0-0.5 K/uL Basophils # (Auto) 0.02 0-0.2 K/uL RDW Standard Deviation 39.8 36.4-46.3 fL RDW Coefficient of Variation 12.5 11.5-14.5 % Immature Granulocyte % (Auto) 0.3 % Immature Granulocyte # (Auto) 0.02 0.00-0.02 K/uL D-Dimer 83144 0-500 ug/L FEU Sodium Level 143 136-145 mmol/L Potassium Level 3.7 3.5-5.1 mmol/L Chloride Level 108 98-107 mmol/L Carbon Dioxide Level 27 21-32 mmol/L Anion Gap 8.0 3-11 mmol/L Blood Urea Nitrogen 22 7-18 mg/dl Creatinine 1.20 0.60-1.20 mg/dl Est Creatinine Clear Calc Drug Dose 53.3 ml/min Estimated GFR () 54.5 Estimated GFR (Non- 47.1 BUN/Creatinine Ratio 18.3 10-20 Random Glucose 102 70-99 mg/dl Calcium Level 10.5 8.5-10.1 mg/dl Total Bilirubin 0.3 0.2-1 mg/dl Direct Bilirubin < 0.1 0-0.2 mg/dl Aspartate Amino Transf (AST/SGOT) 24 15-37 U/L Alanine Aminotransferase (ALT/SGPT) 31 12-78 U/L Alkaline Phosphatase 68 45-117 U/L Total Creatine Kinase 46 26-192 U/L Creatine Kinase MB < 0.5 0.5-3.6 ng/ml Creatine Kinase MB Ratio 0-3.0 Troponin I 0.023 0-0.045 ng/ml Total Protein 7.6 6.4-8.2 gm/dl Albumin 3.8 3.4-5.0 gm/dl Lipase 268 73-393 U/L Prothrombin Time 11.0 9.0-12.0 SECONDS Prothromb Time International Ratio 1.0 0.9-1.1 Activated Partial Thromboplast Time 24.3 21.0-31.0 SECONDS Partial Thromboplastin Ratio 0.9 Arterial Blood pH 7.41 7.35-7.45 Arterial Blood Partial Pressure CO2 34 35-46 mmHg Arterial Blood Partial Pressure O2 71 80-95 mm/Hg Arterial Blood HCO3 21 19-24 mmol/L Arterial Blood Oxygen Saturation 93.5 90-95 % Arterial Blood Base Excess -2.7 -9-1.8 mEq/L Arterial Blood Gas Delivery 2 LITERS Tavon Test POS POS Test 09/26/16 07:08 09/26/16 09:49 Range/Units White Blood Count 7.22 4.8-10.8 K/uL Red Blood Count 4.21 4.2-5.4 M/uL Hemoglobin 12.0 12.0-16.0 g/dL Hematocrit 38.0 37-47 % Mean Corpuscular Volume 90.3 80-100 fL Mean Corpuscular Hemoglobin 28.5 25-34 pg Mean Corpuscular Hemoglobin Concent 31.6 32-36 g/dl Platelet Count 276 130-400 K/uL Mean Platelet Volume 10.7 7.4-10.4 fL Neutrophils (%) (Auto) 68.3 % Lymphocytes (%) (Auto) 19.9 % Monocytes (%) (Auto) 8.7 % Eosinophils (%) (Auto) 2.1 % Basophils (%) (Auto) 0.6 % Neutrophils # (Auto) 4.93 1.4-6.5 K/uL Lymphocytes # (Auto) 1.44 1.2-3.4 K/uL Monocytes # (Auto) 0.63 0.11-0.59 K/uL Eosinophils # (Auto) 0.15 0-0.5 K/uL Basophils # (Auto) 0.04 0-0.2 K/uL RDW Standard Deviation 42.0 36.4-46.3 fL RDW Coefficient of Variation 12.8 11.5-14.5 % Immature Granulocyte % (Auto) 0.4 % Immature Granulocyte # (Auto) 0.03 0.00-0.02 K/uL Sodium Level 143 136-145 mmol/L Potassium Level 4.2 3.5-5.1 mmol/L Chloride Level 109 98-107 mmol/L Carbon Dioxide Level 27 21-32 mmol/L Anion Gap 7.0 3-11 mmol/L Blood Urea Nitrogen 21 7-18 mg/dl Creatinine 1.20 0.60-1.20 mg/dl Est Creatinine Clear Calc Drug Dose 53.1 ml/min Estimated GFR () 54.5 Estimated GFR (Non- 47.1 BUN/Creatinine Ratio 17.1 10-20 Random Glucose 103 70-99 mg/dl Calcium Level 9.0 8.5-10.1 mg/dl Troponin I 0.018 0-0.045 ng/ml Activated Partial Thromboplast Time 49.9 21.0-31.0 SECONDS Partial Thromboplastin Ratio 1.9 Diagnostic Radiology TTE from 09/26/2016 -- Conclusions -- * Ejection Fraction = 60-65%. * The right ventricle is not well visualized. * The right ventricle appears mildly dialted in limited views. * The right ventricular function is qualitatively normal in limited views. * There is mild tricuspid regurgitation. * The estimated systolic PAP is 60mmhg. Chest x-ray from 09/26/2016 FINDINGS: Cardiomediastinal silhouette normal. Minimal left apical opacity is better appreciated on subsequent CT. Pleural spaces clear. Osseous structures and upper abdomen normal. IMPRESSION: 1. Minimal left apical opacity better appreciated on subsequent CT. CT chest from 09/26/2016 1. Extensive bilateral pulmonary emboli bilaterally as above. Straightening of the intraventricular septum raises the concern for possible associated right heart strain. 2. Focal groundglass opacity of the left upper lobe may reflect atelectasis, pneumonitis or small pulmonary infarction. 3. Diffuse fatty infiltration of the liver. 4. Chronic compression deformity of T12. EKG Sinus bradycardia 50 bpm Otherwise normal ECG When compared with ECG of 13-SEP-2016 15:31, QT has lengthened Impression Assessment and Plan Bilateral pulmonary emboli Hypoxemia Patient has provoked PE secondary to failed DVT prophylaxis of aspirin 325 mg twice a day after recent orthopedic surgery. She is currently hemodynamically stable with mild hypoxemia which is resolved with supplemental oxygen of [address] imaging showed flattening of the intraventricular septum which is suggestive of right heart strain however on an echo cardiography this was not confirmed in the preliminary read. She does have elevated pulmonary artery pressure of 60 mmHg, but this is consistent with acute pulmonary embolism and showed resolved with adequate treatment. Her troponins 2 are negative which is a good prognostic factor. BNP have not been sent which should be. Left upper lobe groundglass opacity could be an infarction or atelectasis. Infection unlikely. A full hypercoagulable workup has been sent. Patients should be treated with full dose anticoagulation for at least 3 months. Depending on her lifestyle and patient preference she can be bridged onto Coumadin or started on a NOAC. Continue with heparin drip for now. Continue with oxygen therapy at 2 L nasal cannula. Ensure adequate pain control and give incentive spirometry to prevent atelectasis. I appreciate the consult. Please contact me if you've any further questions or concerns.
[2016-09-27] VITALS (7 sets, daily range): BP systolic 110–132; BP diastolic 62–72; PULSE 58–72; TEMP 36.7–37.1; O2SAT 93–95
[2016-09-27] MEDS: ACETAMINOPHEN 325 MG TAB PO PRN (03:22)
[2016-09-27] MEDS: LEVOTHYROXINE 112 MCG TAB PO SCH (05:37)
[2016-09-27 07:22] LABS: BASO % 0.6 %; BASO ABS # 0.03 K/uL (0-0.2); COMPLETE YES; EOS % 6.1 %; IG% 0.4 %; LYMPH % 24.3 %; LYMPH ABS # 1.28 K/uL (1.2-3.4); MEAN CELL VOLUME 90.7 fL (80-100); MEAN CORPUSCULAR HEMOGLOBIN 29.9 pg (25-34); MEAN CORPUSCULAR HGB CONC 32.9 g/dl (32-36); MEAN PLATELET VOLUME 10.3 fL (7.4-10.4); NEUT % 60.6 %; PLATELET COUNT 238 K/uL (130-400); RED BLOOD COUNT 3.75 M/uL (4.2-5.4); WHITE BLOOD COUNT 5.26 K/uL (4.8-10.8)
[2016-09-27 07:32] LABS: PARTIAL THROMBOPLASTIN RATIO 1.5
[2016-09-27] MEDS: FENOFIBRATE 145 MG TAB PO SCH (07:40)
[2016-09-27] MEDS: RANITIDINE HCL 150 MG TAB PO SCH ×2 (07:40→21:28)
[2016-09-27] MEDS: hydrOXYzine HCL 25 MG TAB PO SCH (07:40)
[2016-09-27] MEDS ORDERED: HEPARIN IV BOLUS 6,000 UNIT in SYRINGE 0 ML IV ONE (09:00)
--- NOTE | 2016-09-27 13:16 | Clinical Documentation Query ---
MICHELLE Smart : CLINICAL DOCUMENTATION QUERY Clinical documentation includes a diagnosis of: Acute Respiratory Failure. Due to stringent requirements by our coding department, multiple clinical indicators associated with this diagnosis must be present in order for this to be coded/captured within the medical record. If appropriate, please document 2 or more of the following clinical indicators in daily progress notes and the discharge summary. If you feel the diagnosis of acute respiratory failure was made in error, or do not agree with it, simply discontinue documentation thereof. Acute Respiratory Failure indicators include: * Respirations >28 * Air hunger * Use of accessory muscles of respiration * Inability to speak in full sentences * Cyanosis * Pulse ox <90% RA or <95% on O2 *pH <7.35 or >7.45 * pO2 < 60 mm Hg (or 10mm below COPD patient's baseline) * pCO2 >50mm Hg (or 10mm above COPD patient's baseline) * mechanical ventilation * Increased work of breathing * Tachypnea Please clarify and document your clinical opinion in the progress notes and discharge summary. Terms such as "probable", "suspected", "likely", "questionable", "possible", or "still to be ruled out" are acceptable. IF IN AGREEMENT, YOU MUST DOCUMENT ABOVE DIAGNOSTIC STATEMENT IN DAILY PROGRESS NOTES AND DISCHARGE SUMMARY. This document is not part of the patient's record. Thank You, Estiven Taveras, ROSA [phone]
--- NOTE | 2016-09-27 14:45 | Pulmonology Progress Note ---
Pulmonary Progress Note Date of Service Sep 27, 2016. Attending Dr. Weber Subjective Patient seen and examined at bedside. She denies any chest pain, cough, or hemoptysis. Still having some left lower extremity pain at ankle. Otherwise she is feeling better. Objective Vitals reviewed. Afebrile, P 64, BP 129/78, 92% on 4L NC. Head: normocephalic, atraumatic Skin: No skin rashes Eyes: normal inspection, EOMI, sclerae normal ENT: normal ENT inspection, pharynx normal Neck: supple, no adenopathy, trachea midline Respiratory/Chest: Good air entry bilaterally, no crackles or wheezes Cardiovascular: regular rate, rhythm, no edema, no murmur Abdomen / GI: normal bowel sounds, non tender, obese Back: Intact Extremities: Left leg in cast, right lower extremity with compression stockings , No cyanosis or clubbing bilaterally. Neurologic/Psych: no motor/sensory deficits, awake alert oriented 3 TTE from 09/26/2016 -- Conclusions -- * Ejection Fraction = 60-65%. * The right ventricle is not well visualized. * The right ventricle appears mildly dialted in limited views. * The right ventricular function is qualitatively normal in limited views. * There is mild tricuspid regurgitation. * The estimated systolic PAP is 60mmhg. Chest x-ray from 09/26/2016 FINDINGS: Cardiomediastinal silhouette normal. Minimal left apical opacity is better appreciated on subsequent CT. Pleural spaces clear. Osseous structures and upper abdomen normal. IMPRESSION: 1. Minimal left apical opacity better appreciated on subsequent CT. CT chest from 09/26/2016 1. Extensive bilateral pulmonary emboli bilaterally as above. Straightening of the intraventricular septum raises the concern for possible associated right heart strain. 2. Focal groundglass opacity of the left upper lobe may reflect atelectasis, pneumonitis or small pulmonary infarction. 3. Diffuse fatty infiltration of the liver. 4. Chronic compression deformity of T12. Lower extremity U/S 09/26/2016 On the right, no intraluminal thrombus was visualized. The veins are fully compressible from the groin through the popliteal vein. There is normal color-flow the proximal trifurcation veins of the right calf. In the left, no thrombus is visualized in the left common femoral or superficial femoral veins. There is thrombus within the left popliteal vein which appears acute. There is left peroneal vein thrombus. IMPRESSION: Acute left lower extremity DVT with involvement of the popliteal and peroneal veins Assessment & Plan Bilateral pulmonary emboli Hypoxemia Left lower extremity DVT Continue with full dose anticoagulation for at least 3 months for provoked VTE. She states that she is on awaiting insurance response to see whether she will be approved on NOAC versus Coumadin. Continue with the heparin drip for now. She is currently on 4L nasal cannula titrate as tolerated. Ensure adequate pain control and give incentive spirometry to prevent atelectasis. Hypercoagulable work up pending. I appreciate the consult. Will sign of case. Please contact me if you've any further questions or concerns. Data Medications: Current Inpatient Medications Medications (Trade) Dose Ordered Sig/Lucho Route Start Time Stop Time Status Last Admin Dose Admin Ioversol (Optiray 320) 100 ml UD PRN IV 09/26/16 00:15 09/30/16 00:14 Acetaminophen (Tylenol Tab) 650 mg Q4H PRN PO 09/26/16 02:30 10/26/16 02:29 09/27/16 03:22 650 MG Hydromorphone HCl (Dilaudid Inj) 0.5 mg Q3H PRN IV 09/26/16 02:30 10/10/16 02:29 Ondansetron HCl (Zofran Inj) 4 mg Q6H PRN IV 09/26/16 02:30 10/26/16 02:29 Atenolol (Tenormin Tab) 50 mg QAM PO 09/27/16 09:00 10/27/16 08:59 09/27/16 07:40 50 MG Hydroxyzine HCl (Vistaril Tab) 25 mg QAM PO 09/26/16 09:00 10/26/16 08:59 09/27/16 07:40 25 MG Levothyroxine Sodium (Synthroid Tab) 112 mcg DAILYBB PO 09/26/16 06:00 10/26/16 05:59 09/27/16 05:37 112 MCG Ranitidine HCl (zANTac TAB) 150 mg BID PO 09/26/16 09:00 10/26/16 08:59 09/27/16 07:40 150 MG Fenofibrate (Tricor Tab) 145 mg QAM PO 09/26/16 09:00 10/26/16 08:59 09/27/16 07:40 145 MG Acetaminophen/ Hydrocodone Bitart ([place] 5/325 Tab) 1 tab Q4H PRN PO 09/26/16 02:30 10/10/16 02:29 Albuterol/ Ipratropium (Duoneb) 3 ml Q2H PRN INH 09/26/16 02:30 10/26/16 02:29 Heparin Sodium (Porcine) 20398 unit/Dextrose 500 ml @ 32 mls/hr [id number] PRN IV 09/26/16 03:15 10/26/16 03:14 09/26/16 21:45 26 MLS/HR Vital Signs: Date Time Temp Pulse Resp B/P (MAP) Pulse Ox O2 Delivery O2 Flow Rate FiO2 09/27/16 12:13 93 Nasal Cannula 4.0 09/27/16 11:26 37.1 62 18 110/62 (78) 93 Nasal Cannula 4.0 09/27/16 08:01 93 Nasal Cannula 4.0 09/27/16 06:58 36.7 58 18 110/66 (81) 93 Nasal Cannula 4.0 09/27/16 04:09 36.7 58 20 120/70 (87) 95 Nasal Cannula 5.0 09/27/16 04:00 Nasal Cannula 4.0 09/26/16 23:59 Nasal Cannula 4.0 09/26/16 23:51 36.5 57 20 118/73 (88) 96 Nasal Cannula 4.0 09/26/16 20:00 Nasal Cannula 4.0 09/26/16 18:46 37.0 64 17 122/76 (91) 94 Nasal Cannula 4.0 09/26/16 16:00 Nasal Cannula 4.0 09/26/16 15:19 36.7 58 19 124/74 (91) 94 Nasal Cannula 4.0 Laboratory Results: Last 24 Hours Test 09/27/16 06:52 White Blood Count 5.26 K/uL Red Blood Count 3.75 M/uL Hemoglobin 11.2 g/dL Hematocrit 34.0 % Mean Corpuscular Volume 90.7 fL Mean Corpuscular Hemoglobin 29.9 pg Mean Corpuscular Hemoglobin Concent 32.9 g/dl Platelet Count 238 K/uL Mean Platelet Volume 10.3 fL Neutrophils (%) (Auto) 60.6 % Lymphocytes (%) (Auto) 24.3 % Monocytes (%) (Auto) 8.0 % Eosinophils (%) (Auto) 6.1 % Basophils (%) (Auto) 0.6 % Neutrophils # (Auto) 3.19 K/uL Lymphocytes # (Auto) 1.28 K/uL Monocytes # (Auto) 0.42 K/uL Eosinophils # (Auto) 0.32 K/uL Basophils # (Auto) 0.03 K/uL RDW Standard Deviation 42.6 fL RDW Coefficient of Variation 12.9 % Immature Granulocyte % (Auto) 0.4 % Immature Granulocyte # (Auto) 0.02 K/uL Activated Partial Thromboplast Time 38.8 SECONDS Partial Thromboplastin Ratio 1.5
[2016-09-27] MEDS: HEPARIN 25000 UNIT/ D5W 500 ML (PHARMACY PREPARED) IV PRN ×2 (15:39)
[2016-09-27 15:42] LABS: PARTIAL THROMBOPLASTIN RATIO 2.2
--- NOTE | 2016-09-27 17:07 | Progress Note ---
Medicine Progress Note Date & Time of Visit: Sep 27, 2016 at 16:57. Subjective Pt was seen and examined Sitting at the edge of the bed with at bedside Pt said that she feels fine she said that the tenderness across her chest improved she said that her breathing seems to improved denies any hematuria, chest pain, palpitation, SOB, blood in stools Objective Last 8 Hrs Date Time Temp Pulse Resp B/P (MAP) Pulse Ox O2 Delivery O2 Flow Rate FiO2 09/27/16 16:00 Nasal Cannula 4.0 09/27/16 12:13 93 Nasal Cannula 4.0 09/27/16 11:26 37.1 62 18 110/62 (78) 93 Nasal Cannula 4.0 Physical Exam: General- No acute distress Head- atraumatic Eyes- PERRL, EOMI ENT- oropharynx clear Neck- supple, no JVD Lungs- clear to auscultation Heart- regular rhythm; no murmur Abdomen- normal bowel sounds, soft Extremities- no calf tenderness, left fracture boot in place Neuro- alert, oriented x 3; PERRL, EOMI Skin- warm & dry Laboratory Results: Last 24 Hours Test 09/27/16 06:52 09/27/16 15:14 White Blood Count 5.26 K/uL Red Blood Count 3.75 M/uL Hemoglobin 11.2 g/dL Hematocrit 34.0 % Mean Corpuscular Volume 90.7 fL Mean Corpuscular Hemoglobin 29.9 pg Mean Corpuscular Hemoglobin Concent 32.9 g/dl Platelet Count 238 K/uL Mean Platelet Volume 10.3 fL Neutrophils (%) (Auto) 60.6 % Lymphocytes (%) (Auto) 24.3 % Monocytes (%) (Auto) 8.0 % Eosinophils (%) (Auto) 6.1 % Basophils (%) (Auto) 0.6 % Neutrophils # (Auto) 3.19 K/uL Lymphocytes # (Auto) 1.28 K/uL Monocytes # (Auto) 0.42 K/uL Eosinophils # (Auto) 0.32 K/uL Basophils # (Auto) 0.03 K/uL RDW Standard Deviation 42.6 fL RDW Coefficient of Variation 12.9 % Immature Granulocyte % (Auto) 0.4 % Immature Granulocyte # (Auto) 0.02 K/uL Activated Partial Thromboplast Time 38.8 SECONDS 57.1 SECONDS Partial Thromboplastin Ratio 1.5 2.2 Assessment & Plan Acute B/L PE Acute LLE DVT Present with chest pain and hypoxia on admission Provoked by recent orthopedic surgery in the LLE LE venous Doppler showed acute left lower extremity DVT with involvement of the popliteal and peroneal veins CTA chest showed Extensive bilateral pulmonary emboli bilaterally associated right heart strain. On heparin drip Continue oxygen supplement will need to be anticoagulate for at least 3 months Discussed with pt about anticoagulant with Coumadin vs NOAC discussed about bleeding risks Pt will decide tomorrow about anticoagulant Continue incentive spirometry hypercoagulable workup sent Pulmonary on board 09/27 continue heparin drip waiting for insurance to check if NOAC will be covered Will wean her off oxygen slowly Will discharge home tomorrow Echo done showed * Ejection Fraction = 60-65%. * The right ventricle is not well visualized. * The right ventricle appears mildly dialted in limited views. * The right ventricular function is qualitatively normal in limited views. * There is mild tricuspid regurgitation. * The estimated systolic PAP is 60mmhg. S/P Left Ankle Surgery Failed ASA thrombo-embolic prophylaxis Ortho on board Plan to removed staple on tomorrow Continue fracture boot during transportation continue PT/OT Hypertension Stable DVT px on heparin subq CODE STATUS FULL CODE DISPOSITION Discharge home tomorrow on anticoagulant Consultants: Pulmonary Ortho Current Inpatient Medications: Current Inpatient Medications Medications (Trade) Dose Ordered Sig/Lucho Route Start Time Stop Time Status Last Admin Dose Admin Ioversol (Optiray 320) 100 ml UD PRN IV 09/26/16 00:15 09/30/16 00:14 Acetaminophen (Tylenol Tab) 650 mg Q4H PRN PO 09/26/16 02:30 10/26/16 02:29 09/27/16 03:22 650 MG Hydromorphone HCl (Dilaudid Inj) 0.5 mg Q3H PRN IV 09/26/16 02:30 10/10/16 02:29 Ondansetron HCl (Zofran Inj) 4 mg Q6H PRN IV 09/26/16 02:30 10/26/16 02:29 Atenolol (Tenormin Tab) 50 mg QAM PO 09/27/16 09:00 10/27/16 08:59 09/27/16 07:40 50 MG Hydroxyzine HCl (Vistaril Tab) 25 mg QAM PO 09/26/16 09:00 10/26/16 08:59 09/27/16 07:40 25 MG Levothyroxine Sodium (Synthroid Tab) 112 mcg DAILYBB PO 09/26/16 06:00 10/26/16 05:59 09/27/16 05:37 112 MCG Ranitidine HCl (zANTac TAB) 150 mg BID PO 09/26/16 09:00 10/26/16 08:59 09/27/16 07:40 150 MG Fenofibrate (Tricor Tab) 145 mg QAM PO 09/26/16 09:00 10/26/16 08:59 09/27/16 07:40 145 MG Acetaminophen/ Hydrocodone Bitart ([place] 5/325 Tab) 1 tab Q4H PRN PO 09/26/16 02:30 10/10/16 02:29 Albuterol/ Ipratropium (Duoneb) 3 ml Q2H PRN INH 09/26/16 02:30 10/26/16 02:29 Heparin Sodium (Porcine) 36354 unit/Dextrose 500 ml @ 32 mls/hr [id number] PRN IV 09/26/16 03:15 10/26/16 03:14 09/27/16 15:39 32 MLS/HR
[2016-09-27] MEDS ORDERED: WARFARIN SOD 5 MG TAB PO ONE (18:51)
[2016-09-28] VITALS (8 sets, daily range): BP systolic 119–144; BP diastolic 62–80; PULSE 64–88; TEMP 36.8–37.2; O2SAT 90–95
[2016-09-28] MEDS: LEVOTHYROXINE 112 MCG TAB PO SCH (04:52)
[2016-09-28] MEDS: HEPARIN 25000 UNIT/ D5W 500 ML (PHARMACY PREPARED) IV PRN ×4 (04:56→21:01)
[2016-09-28] MEDS: hydrOXYzine HCL 25 MG TAB PO SCH (06:55)
[2016-09-28] MEDS: FENOFIBRATE 145 MG TAB PO SCH (06:55)
[2016-09-28] MEDS: RANITIDINE HCL 150 MG TAB PO SCH ×2 (06:55→21:02)
[2016-09-28 07:14] LABS: BASO % 0.2 %; BASO ABS # 0.01 K/uL (0-0.2); COMPLETE YES; EOS % 4.6 %; HEMATOCRIT 38.3 % (37-47); IG% 0.6 %; LYMPH % 21.2 %; LYMPH ABS # 1.07 K/uL (1.2-3.4); MEAN CELL VOLUME 89.5 fL (80-100); MEAN CORPUSCULAR HEMOGLOBIN 27.6 pg (25-34); MEAN CORPUSCULAR HGB CONC 30.8 g/dl (32-36); MEAN PLATELET VOLUME 10.6 fL (7.4-10.4); MONO % 6.9 %; NEUT % 66.5 %; PLATELET COUNT 271 K/uL (130-400); RED BLOOD COUNT 4.28 M/uL (4.2-5.4); WHITE BLOOD COUNT 5.05 K/uL (4.8-10.8)
[2016-09-28 07:33] LABS: INR 1.1 (0.9-1.1); PARTIAL THROMBOPLASTIN RATIO 1.9
--- NOTE | 2016-09-28 08:54 | Progress Note ---
Orthopedic SOAP Note Subjective Date of Service: Sep 28, 2016. Post OP Day: 11 Reports: feeling well, pain controlled w PO medications, Denies: complaints, chest pain, SOB, nausea / vomiting, light headedness, calf pain, using NURSE INFECTION CONTROL Additional Notes: reports SOB and chest tightness much improved. ankle pain s/p ORIF by Dr. Vaz on 09/17/16 improving as well Problem List Medical Problems: (1) Trimalleolar fracture of ankle, closed Status: Acute Objective calves soft nontender, N/V intact, capillary refill less than 2 sec., dressing C /D/I, incision C/D/I (anushka removed today under sterile conditions, benzoin tincture and steri-strips applied, incision is without erythema or drainage), A& O x3, toes mobile Date Time Temp Pulse Resp B/P (MAP) Pulse Ox O2 Delivery O2 Flow Rate FiO2 09/28/16 08:24 93 Room Air 09/28/16 07:06 36.8 64 21 133/80 (97) 93 Room Air 09/28/16 04:00 Nasal Cannula 1.0 09/28/16 03:58 37.0 67 19 119/63 (81) 95 Nasal Cannula 2.0 09/28/16 00:00 Nasal Cannula 1.0 09/27/16 22:57 36.9 63 19 132/72 (92) 95 Nasal Cannula 2.0 09/27/16 20:00 Nasal Cannula 4.0 09/27/16 18:46 36.7 72 18 119/64 (82) 94 Nasal Cannula 3.0 09/27/16 16:00 Nasal Cannula 4.0 09/27/16 12:13 93 Nasal Cannula 4.0 09/27/16 11:26 37.1 62 18 110/62 (78) 93 Nasal Cannula 4.0 Laboratory Results 24 Hours: Test 09/28/16 06:41 White Blood Count 5.05 K/uL Red Blood Count 4.28 M/uL Hemoglobin 11.8 g/dL Hematocrit 38.3 % Mean Corpuscular Volume 89.5 fL Mean Corpuscular Hemoglobin 27.6 pg Mean Corpuscular Hemoglobin Concent 30.8 g/dl Platelet Count 271 K/uL Mean Platelet Volume 10.6 fL Neutrophils (%) (Auto) 66.5 % Lymphocytes (%) (Auto) 21.2 % Monocytes (%) (Auto) 6.9 % Eosinophils (%) (Auto) 4.6 % Basophils (%) (Auto) 0.2 % Neutrophils # (Auto) 3.36 K/uL Lymphocytes # (Auto) 1.07 K/uL Monocytes # (Auto) 0.35 K/uL Eosinophils # (Auto) 0.23 K/uL Basophils # (Auto) 0.01 K/uL Prothromb Time International Ratio 1.1 Prothrombin Time 12.0 SECONDS Assessment s/p Left ankle ORIF 09/17/[address] Vaz [facility] Bilateral pulmonary embolism Left lower extremity DVT Plan Continue current orders per Medicine and treatment for PE Elevate left lower extremity Please keep incision covered Fracture boot on when upright Nonweightbearing left LE Possible discharge today Will follow-up with Dr. Vaz at [facility] in 4 weeks Anushka removed today from left ankle
--- NOTE | 2016-09-28 08:59 | Consultant Recommendations ---
Hog Buyer Recommendations Date of Service Sep 28, 2016. Hog Buyer Recommendations Orthopedic Discharge Instructions: -Continue nonweightbearing left lower extremity -Do not submerge in a bath, it may get wet in a shower but do not scrub directly , pat dry afterwards and keep covered. -The boot may be removed to perform PT and range of motion exercises, otherwise the boot must be on with sleeping and when upright ambulating/transferring -Continue to elevate for swelling control -Please call [facility] to reschedule an appointment with Dr. Vaz for 4 weeks, new xrays will be obtained at that appointment. -[phone] -If you notice any changes at your incisions, such as increased drainage, swelling, redness, or pain, please notify our office accordingly -Please continue your medicine provided by your providers from [facility] to treat your pulmonary emboli.
--- NOTE | 2016-09-28 10:22 | Progress Note ---
Medicine Progress Note Date & Time of Visit: Sep 28, 2016 at 10:15. Subjective Pt was seen and examined Lying in bed with no distress with at bedside Pt said that she feels fine Denies any chest pain, palpitation, dizziness and SOB Objective Last 8 Hrs Date Time Temp Pulse Resp B/P (MAP) Pulse Ox O2 Delivery O2 Flow Rate FiO2 09/28/16 08:24 93 Room Air 09/28/16 07:06 36.8 64 21 133/80 (97) 93 Room Air 09/28/16 04:00 Nasal Cannula 1.0 09/28/16 03:58 37.0 67 19 119/63 (81) 95 Nasal Cannula 2.0 Physical Exam: General- No acute distress Head- atraumatic Eyes- PERRL, EOMI ENT- oropharynx clear Neck- supple, no JVD Lungs- clear to auscultation Heart- regular rhythm; no murmur Abdomen- normal bowel sounds, soft Extremities- no calf tenderness, left fracture boot in place Neuro- alert, oriented x 3; PERRL, EOMI Skin- warm & dry Laboratory Results: Last 24 Hours Test 09/27/16 15:14 09/28/16 06:41 Activated Partial Thromboplast Time 57.1 SECONDS 49.2 SECONDS Partial Thromboplastin Ratio 2.2 1.9 White Blood Count 5.05 K/uL Red Blood Count 4.28 M/uL Hemoglobin 11.8 g/dL Hematocrit 38.3 % Mean Corpuscular Volume 89.5 fL Mean Corpuscular Hemoglobin 27.6 pg Mean Corpuscular Hemoglobin Concent 30.8 g/dl Platelet Count 271 K/uL Mean Platelet Volume 10.6 fL Neutrophils (%) (Auto) 66.5 % Lymphocytes (%) (Auto) 21.2 % Monocytes (%) (Auto) 6.9 % Eosinophils (%) (Auto) 4.6 % Basophils (%) (Auto) 0.2 % Neutrophils # (Auto) 3.36 K/uL Lymphocytes # (Auto) 1.07 K/uL Monocytes # (Auto) 0.35 K/uL Eosinophils # (Auto) 0.23 K/uL Basophils # (Auto) 0.01 K/uL RDW Standard Deviation 41.8 fL RDW Coefficient of Variation 12.9 % Immature Granulocyte % (Auto) 0.6 % Immature Granulocyte # (Auto) 0.03 K/uL Prothrombin Time 12.0 SECONDS Prothromb Time International Ratio 1.1 Hepatitis C Antibody NEG Assessment & Plan Acute B/L PE Acute LLE DVT Present with chest pain and hypoxia on admission Provoked by recent orthopedic surgery in the LLE LE venous Doppler showed acute left lower extremity DVT with involvement of the popliteal and peroneal veins CTA chest showed Extensive bilateral pulmonary emboli bilaterally associated right heart strain. On heparin drip Continue oxygen supplement will need to be anticoagulate for at least 3 months Discussed with pt about anticoagulant with Coumadin vs NOAC discussed about bleeding risks Pt will decide tomorrow about anticoagulant Continue incentive spirometry hypercoagulable workup sent Pulmonary on board 09/27 continue heparin drip waiting for insurance to check if NOAC will be covered Will wean her off oxygen slowly Will discharge home tomorrow 09/28 On heparin drip, will switch to lovenox associate project manager checked for mobley, NOAC will be too expensive will do coumadin and bridge with lovenox 1st dose of coumadin given yesterday She will need to follow with the coag clinic INR goal 2-3 Insurance will not cover for the lovenox ( it will cost pt about $700 for 7-10 days for the lovenox) Will keep pt in the hospital with the heparin drip until INR is therapeutic. Will give Coumadin 5 mg today Echo done showed * Ejection Fraction = 60-65%. * The right ventricle is not well visualized. * The right ventricle appears mildly dialted in limited views. * The right ventricular function is qualitatively normal in limited views. * There is mild tricuspid regurgitation. * The estimated systolic PAP is 60mmhg. S/P Left Ankle Surgery Failed ASA thrombo-embolic prophylaxis Ortho on board Stable removal done today by Ortho Continue fracture boot during transportation continue PT/OT Orthopedic Discharge Instructions: -Continue nonweightbearing left lower extremity -Do not submerge in a bath, it may get wet in a shower but do not scrub directly , pat dry afterwards and keep covered. -The boot may be removed to perform PT and range of motion exercises, otherwise the boot must be on with sleeping and when upright ambulating/transferring -Continue to elevate for swelling control -Please call [facility] to reschedule an appointment with Dr. Vaz for 4 weeks, new xrays will be obtained at that appointment. @[phone] -If you notice any changes at your incisions, such as increased drainage, swelling, redness, or pain, please notify our office accordingly Hypertension Stable DVT px on heparin subq CODE STATUS FULL CODE DISPOSITION Discharge home today with Lovenox and coumadin Consultants: Pulmonary Ortho Current Inpatient Medications: Current Inpatient Medications Medications (Trade) Dose Ordered Sig/Lucho Route Start Time Stop Time Status Last Admin Dose Admin Ioversol (Optiray 320) 100 ml UD PRN IV 09/26/16 00:15 09/30/16 00:14 Acetaminophen (Tylenol Tab) 650 mg Q4H PRN PO 09/26/16 02:30 10/26/16 02:29 09/27/16 03:22 650 MG Hydromorphone HCl (Dilaudid Inj) 0.5 mg Q3H PRN IV 09/26/16 02:30 10/10/16 02:29 Ondansetron HCl (Zofran Inj) 4 mg Q6H PRN IV 09/26/16 02:30 10/26/16 02:29 Atenolol (Tenormin Tab) 50 mg QAM PO 09/27/16 09:00 10/27/16 08:59 09/28/16 06:55 50 MG Hydroxyzine HCl (Vistaril Tab) 25 mg QAM PO 09/26/16 09:00 10/26/16 08:59 09/28/16 06:55 25 MG Levothyroxine Sodium (Synthroid Tab) 112 mcg DAILYBB PO 09/26/16 06:00 10/26/16 05:59 09/28/16 04:52 112 MCG Ranitidine HCl (zANTac TAB) 150 mg BID PO 09/26/16 09:00 10/26/16 08:59 09/28/16 06:55 150 MG Fenofibrate (Tricor Tab) 145 mg QAM PO 09/26/16 09:00 10/26/16 08:59 09/28/16 06:55 145 MG Acetaminophen/ Hydrocodone Bitart (Burns 5/325 Tab) 1 tab Q4H PRN PO 09/26/16 02:30 10/10/16 02:29 Albuterol/ Ipratropium (Duoneb) 3 ml Q2H PRN INH 09/26/16 02:30 10/26/16 02:29 Heparin Sodium (Porcine) 69290 unit/Dextrose 500 ml @ 32 mls/hr [id number] PRN IV 09/26/16 03:15 10/26/16 03:14 09/28/16 04:56 32 MLS/HR Warfarin Sodium (Coumadin Tab) 5 mg DAILY@16 PO 09/28/16 16:00 10/28/16 15:59
[2016-09-28] MEDS: WARFARIN SOD 5 MG TAB PO SCH (16:32)
[2016-09-29] MEDS: ACETAMINOPHEN 325 MG TAB PO PRN ×3 (02:54→12:37)
[2016-09-29] MEDS: LEVOTHYROXINE 112 MCG TAB PO SCH (05:51)
[2016-09-29 07:15] LABS: BASO % 0.7 %; BASO ABS # 0.03 K/uL (0-0.2); COMPLETE YES; EOS % 5.1 %; HEMATOCRIT 36.3 % (37-47); IG% 0.4 %; LYMPH % 29.4 %; LYMPH ABS # 1.32 K/uL (1.2-3.4); MEAN CELL VOLUME 89.4 fL (80-100); MEAN CORPUSCULAR HEMOGLOBIN 29.6 pg (25-34); MEAN CORPUSCULAR HGB CONC 33.1 g/dl (32-36); MEAN PLATELET VOLUME 10.4 fL (7.4-10.4); MONO % 7.8 %; NEUT % 56.6 %; PLATELET COUNT 253 K/uL (130-400); RED BLOOD COUNT 4.06 M/uL (4.2-5.4); WHITE BLOOD COUNT 4.49 K/uL (4.8-10.8)
[2016-09-29 07:38] LABS: INR 1.7 (0.9-1.1); PROTHROMBIN TIME (PATIENT) 18.9 SECONDS (9.0-12.0)
[2016-09-29 07:40] VITALS: BP 125/71; PULSE 68; TEMP 36.8; O2SAT 94
[2016-09-29 08:00] VITALS: O2SAT 94
[2016-09-29] MEDS: FENOFIBRATE 145 MG TAB PO SCH (08:01)
[2016-09-29] MEDS: hydrOXYzine HCL 25 MG TAB PO SCH (08:01)
[2016-09-29] MEDS: RANITIDINE HCL 150 MG TAB PO SCH ×2 (08:01→20:33)
[2016-09-29] MEDS: HEPARIN 25000 UNIT/ D5W 500 ML (PHARMACY PREPARED) IV PRN ×2 (14:16)
[2016-09-29 16:00] VITALS: O2SAT 94
[2016-09-29 16:24] VITALS: BP 121/74; PULSE 66; TEMP 36.6; O2SAT 92
[2016-09-29] MEDS: WARFARIN SOD 5 MG TAB PO SCH (16:54)
--- NOTE | 2016-09-29 17:09 | Progress Note ---
Internal Med Progress Note Date of Service: Sep 29, 2016. Provider Documentation: SUBJECTIVE: resting comfortably ambulating fine afebrile no sob no chest pain denies any pain OBJECTIVE: Vital Signs-as noted below Exam: General-alert and oriented. Not in distress ENT-normal hearing Neck-no neck masses Lungs-cta b/l no wheezing or crackles Heart-s1 and s2 heard, regular rate and rhythm, no murmurs Abdomen-soft bowel sounds present non tender no distension Extremities- no erythema Neuro-alert and oriented moves extremities Lab data as noted below. ASSESSMENT & PLAN: Acute B/L PE Acute LLE DVT Present with chest pain and hypoxia on admission Provoked by recent orthopedic surgery in the LLE LE venous Doppler showed acute left lower extremity DVT with involvement of the popliteal and peroneal veins CTA chest showed Extensive bilateral pulmonary emboli bilaterally associated right heart strain. On heparin drip will need to be anticoagulate for at least 3 months Echo shows The estimated systolic PAP is 60mmhg. on iv heparin and Coumadin inr 1.7 await inr to be therapeutic S/P Left Ankle Surgery Failed ASA thrombo-embolic prophylaxis Ortho on board To continue fracture boot during transportation continue PT/OT Orthopedic Discharge Instructions: -Continue nonweightbearing left lower extremity -Do not submerge in a bath, it may get wet in a shower but do not scrub directly , pat dry afterwards and keep covered. -The boot may be removed to perform PT and range of motion exercises, otherwise the boot must be on with sleeping and when upright ambulating/transferring -Continue to elevate for swelling control -Please call [facility] to reschedule an appointment with Dr. Vaz for 4 weeks, new xrays will be obtained at that appointment. @[phone] -If you notice any changes at your incisions, such as increased drainage, swelling, redness, or pain, please notify our office accordingly Hypertension Stable DVT px on heparin CODE STATUS FULL CODE DISPOSITION Discharge home when inr therapeutic Vital Signs: Date Time Temp Pulse Resp B/P (MAP) Pulse Ox O2 Delivery O2 Flow Rate FiO2 09/29/16 16:24 36.6 66 18 121/74 (90) 92 Room Air 09/29/16 08:00 94 Room Air 09/29/16 07:40 36.8 68 16 125/71 (89) 94 Room Air 09/29/16 00:00 Room Air 09/28/16 23:09 37.2 74 18 143/69 (93) 90 Lab Results: Results Past 24 Hours Test 09/29/16 06:47 Range/Units White Blood Count 4.49 4.8-10.8 K/uL Red Blood Count 4.06 4.2-5.4 M/uL Hemoglobin 12.0 12.0-16.0 g/dL Hematocrit 36.3 37-47 % Mean Corpuscular Volume 89.4 80-100 fL Mean Corpuscular Hemoglobin 29.6 25-34 pg Mean Corpuscular Hemoglobin Concent 33.1 32-36 g/dl Platelet Count 253 130-400 K/uL Mean Platelet Volume 10.4 7.4-10.4 fL Neutrophils (%) (Auto) 56.6 % Lymphocytes (%) (Auto) 29.4 % Monocytes (%) (Auto) 7.8 % Eosinophils (%) (Auto) 5.1 % Basophils (%) (Auto) 0.7 % Neutrophils # (Auto) 2.54 1.4-6.5 K/uL Lymphocytes # (Auto) 1.32 1.2-3.4 K/uL Monocytes # (Auto) 0.35 0.11-0.59 K/uL Eosinophils # (Auto) 0.23 0-0.5 K/uL Basophils # (Auto) 0.03 0-0.2 K/uL RDW Standard Deviation 41.3 36.4-46.3 fL RDW Coefficient of Variation 12.9 11.5-14.5 % Immature Granulocyte % (Auto) 0.4 % Immature Granulocyte # (Auto) 0.02 0.00-0.02 K/uL Prothrombin Time 18.9 9.0-12.0 SECONDS Prothromb Time International Ratio 1.7 0.9-1.1 Activated Partial Thromboplast Time 51.0 21.0-31.0 SECONDS Partial Thromboplastin Ratio 2.0
[2016-09-30 00:13] VITALS: BP 123/73; PULSE 71; TEMP 37; O2SAT 91
[2016-09-30] MEDS: LEVOTHYROXINE 112 MCG TAB PO SCH (06:09)
[2016-09-30 06:45] LABS: BASO % 0.7 %; BASO ABS # 0.04 K/uL (0-0.2); COMPLETE YES; EOS % 4.3 %; HEMATOCRIT 38.8 % (37-47); IG% 0.6 %; LYMPH % 21.3 %; LYMPH ABS # 1.15 K/uL (1.2-3.4); MEAN CELL VOLUME 91.5 fL (80-100); MEAN CORPUSCULAR HEMOGLOBIN 29.5 pg (25-34); MEAN CORPUSCULAR HGB CONC 32.2 g/dl (32-36); MONO % 7.8 %; NEUT % 65.3 %; PLATELET COUNT 261 K/uL (130-400); RED BLOOD COUNT 4.24 M/uL (4.2-5.4); WHITE BLOOD COUNT 5.39 K/uL (4.8-10.8)
[2016-09-30 07:01] LABS: PARTIAL THROMBOPLASTIN RATIO 2.3
[2016-09-30 07:14] VITALS: BP 123/73; PULSE 70; TEMP 36.9; O2SAT 92
[2016-09-30] MEDS: HEPARIN 25000 UNIT/ D5W 500 ML (PHARMACY PREPARED) IV PRN ×2 (07:27)
[2016-09-30 08:00] VITALS: O2SAT 92
[2016-09-30] MEDS: hydrOXYzine HCL 25 MG TAB PO SCH (08:47)
[2016-09-30] MEDS: FENOFIBRATE 145 MG TAB PO SCH (08:47)
[2016-09-30] MEDS: RANITIDINE HCL 150 MG TAB PO SCH ×2 (08:47→21:02)
[2016-09-30 10:09] LABS: INR 2.7 (0.9-1.1); PROTHROMBIN TIME (PATIENT) 29.7 SECONDS (9.0-12.0)
[2016-09-30] MEDS ORDERED: ENOXAPARIN 100 MG/1ML SYR SQ ONE (12:00)
[2016-09-30] MEDS: WARFARIN SOD 5 MG TAB PO SCH (15:36)
[2016-09-30 16:00] VITALS: O2SAT 92
[2016-09-30 16:17] VITALS: BP 123/72; PULSE 75; TEMP 36.8; O2SAT 91
--- NOTE | 2016-09-30 17:02 | Progress Note ---
Internal Med Progress Note Date of Service: Sep 30, 2016. Provider Documentation: SUBJECTIVE: resting comfortably ambulating ok afebrile no pain eating ok no blood in stools OBJECTIVE: Vital Signs-as noted below Exam: General-alert and oriented. Not in distress ENT-normal hearing Neck-no neck masses Lungs-cta b/l no wheezing or crackles Heart-s1 and s2 heard, regular rate and rhythm, no murmurs Abdomen-soft bowel sounds present non tender no distension Extremities- no erythema Neuro-alert and oriented moves extremities Lab data as noted below. ASSESSMENT & PLAN: Acute B/L PE Acute LLE DVT Present with chest pain and hypoxia on admission Provoked by recent orthopedic surgery in the LLE LE venous Doppler showed acute left lower extremity DVT with involvement of the popliteal and peroneal veins CTA chest showed Extensive bilateral pulmonary emboli bilaterally associated right heart strain. On heparin drip will need to be anticoagulate for at least 3 months Echo shows The estimated systolic PAP is 60mmhg. on iv heparin and Coumadin inr 2.7 stooped iv heparin and give one dose of lovenox f/u inr in am. S/P Left Ankle Surgery Failed ASA thrombo-embolic prophylaxis Ortho on board To continue fracture boot during transportation continue PT/OT Orthopedic Discharge Instructions: -Continue nonweightbearing left lower extremity -Do not submerge in a bath, it may get wet in a shower but do not scrub directly , pat dry afterwards and keep covered. -The boot may be removed to perform PT and range of motion exercises, otherwise the boot must be on with sleeping and when upright ambulating/transferring -Continue to elevate for swelling control -Please call [facility] to reschedule an appointment with Dr. Vaz for 4 weeks, new xrays will be obtained at that appointment. @[phone] -If you notice any changes at your incisions, such as increased drainage, swelling, redness, or pain, please notify our office accordingly Hypertension Stable DVT px on heparin CODE STATUS FULL CODE DISPOSITION Discharge home in am Vital Signs: Date Time Temp Pulse Resp B/P (MAP) Pulse Ox O2 Delivery O2 Flow Rate FiO2 09/30/16 16:17 36.8 75 18 123/72 (89) 91 Room Air 09/30/16 08:00 92 Room Air 09/30/16 07:14 36.9 70 20 123/73 (90) 92 Room Air 09/30/16 00:15 Room Air 09/30/16 00:13 37.0 71 18 123/73 (90) 91 Room Air Lab Results: Results Past 24 Hours Test 09/30/16 06:14 Range/Units White Blood Count 5.39 4.8-10.8 K/uL Red Blood Count 4.24 4.2-5.4 M/uL Hemoglobin 12.5 12.0-16.0 g/dL Hematocrit 38.8 37-47 % Mean Corpuscular Volume 91.5 80-100 fL Mean Corpuscular Hemoglobin 29.5 25-34 pg Mean Corpuscular Hemoglobin Concent 32.2 32-36 g/dl Platelet Count 261 130-400 K/uL Mean Platelet Volume 11.0 7.4-10.4 fL Neutrophils (%) (Auto) 65.3 % Lymphocytes (%) (Auto) 21.3 % Monocytes (%) (Auto) 7.8 % Eosinophils (%) (Auto) 4.3 % Basophils (%) (Auto) 0.7 % Neutrophils # (Auto) 3.52 1.4-6.5 K/uL Lymphocytes # (Auto) 1.15 1.2-3.4 K/uL Monocytes # (Auto) 0.42 0.11-0.59 K/uL Eosinophils # (Auto) 0.23 0-0.5 K/uL Basophils # (Auto) 0.04 0-0.2 K/uL RDW Standard Deviation 43.4 36.4-46.3 fL RDW Coefficient of Variation 13.2 11.5-14.5 % Immature Granulocyte % (Auto) 0.6 % Immature Granulocyte # (Auto) 0.03 0.00-0.02 K/uL Prothrombin Time 29.7 9.0-12.0 SECONDS Prothromb Time International Ratio 2.7 0.9-1.1 Activated Partial Thromboplast Time 60.9 21.0-31.0 SECONDS Partial Thromboplastin Ratio 2.3
[2016-09-30] MEDS: ACETAMINOPHEN 325 MG TAB PO PRN (21:02)
[2016-09-30 23:36] VITALS: BP 130/80; PULSE 65; TEMP 36.6; O2SAT 92
[2016-10-01] MEDS: LEVOTHYROXINE 112 MCG TAB PO SCH (06:08)
[2016-10-01 06:19] LABS: BASO % 0.6 %; BASO ABS # 0.03 K/uL (0-0.2); COMPLETE YES; EOS % 5.4 %; HEMATOCRIT 40.1 % (37-47); IG% 0.4 %; LYMPH % 22.8 %; LYMPH ABS # 1.09 K/uL (1.2-3.4); MEAN CELL VOLUME 91.8 fL (80-100); MEAN CORPUSCULAR HEMOGLOBIN 30.2 pg (25-34); MEAN CORPUSCULAR HGB CONC 32.9 g/dl (32-36); MEAN PLATELET VOLUME 10.7 fL (7.4-10.4); MONO % 8.8 %; PLATELET COUNT 263 K/uL (130-400); RED BLOOD COUNT 4.37 M/uL (4.2-5.4); WHITE BLOOD COUNT 4.79 K/uL (4.8-10.8)
[2016-10-01 06:43] LABS: PARTIAL THROMBOPLASTIN RATIO 1.3
[2016-10-01 06:45] LABS: INR 3.6 (0.9-1.1)
[2016-10-01 07:08] VITALS: BP 118/71; PULSE 73; TEMP 36.5; O2SAT 92
[2016-10-01] MEDS: RANITIDINE HCL 150 MG TAB PO SCH (09:31)
[2016-10-01] MEDS: FENOFIBRATE 145 MG TAB PO SCH (09:31)
[2016-10-01] MEDS: hydrOXYzine HCL 25 MG TAB PO SCH (09:31)
[2016-10-01] MEDS ORDERED: CMD25 PO (11:26)
--- NOTE | 2016-10-01 11:29 | Discharge Instructions ---
Discharge Instructions Date of Service Oct 01, 2016. Admission Reason for Admission: Respiratory Failure, Acute Discharge Discharge Diagnosis / Problem: ACUTE PE and DVT Discharge Goals Goal(s): Decrease discomfort, Improve function Activity Recommendations Activity Limitations: resume your previous activity . Instructions / Follow-Up Instructions / Follow-Up FOLLOWUP WITH FAMILY DOCTOR IN ONE WEEK HOLD COUMADIN TODAY AND RESUME COUMADIN 2.5MG PO DAILY IN EVENING FROM TOMORROW 10/02/16. TO CHECK LABS: PT/INR IN 3 DAYS( 10/04/16 AND AGAIN ON 10/08/16) AND FOLLOW RESULTS WITH FAMILY DOCTOR FOR FURTHER ADJUSTMENTS IN COUMADIN DOSING. FURTHER LAB CHECK PER FAMILY DOCTOR OR COUMADIN CLINIC. DURATION OF COUMADIN PER FAMILY DOCTOR. Current Hospital Diet Patient's current hospital diet: AHA Diet (Heart Healthy) Discharge Diet Recommended Diet: AHA Diet (Heart Healthy) Pending Studies Studies pending at discharge: no Medical Emergencies . Who to Call and When: Medical Emergencies: If at any time you feel your situation is an emergency, please call 911 immediately. . Non-Emergent Contact Non-Emergency issues call your: Primary Care Provider . . "Provider Documentation" section prepared by Noah Aly. . Television News Video Editor Recommendations Television News Video Editor Recommendations: Orthopedic Discharge Instructions: -Continue nonweightbearing left lower extremity -Do not submerge in a bath, it may get wet in a shower but do not scrub directly , pat dry afterwards and keep covered. -The boot may be removed to perform PT and range of motion exercises, otherwise the boot must be on with sleeping and when upright ambulating/transferring -Continue to elevate for swelling control -Please call [facility] to reschedule an appointment with Dr. Vaz for 4 weeks, new xrays will be obtained at that appointment. -[phone] -If you notice any changes at your incisions, such as increased drainage, swelling, redness, or pain, please notify our office accordingly -Please continue your medicine provided by your providers from [facility] to treat your pulmonary emboli. VTE Core Measure Inpt VTE Proph given/why not?: Warfarin (Coumadin), Other Anticoagulation (IV HEPARIN)
[2016-10-01 12:15] VITALS: BP 118/71; PULSE 73; TEMP 36.5; O2SAT 92
--- NOTE | 2016-10-01 17:43 | Progress Note ---
Internal Med Progress Note Date of Service: Oct 01, 2016. Provider Documentation: SUBJECTIVE: resting comfortably no sob afebrile awaiting to be discharged OBJECTIVE: Vital Signs-as noted below Exam: General-alert and oriented. Not in distress ENT-normal hearing Neck-no neck masses Lungs-cta b/l no wheezing or crackles Heart-s1 and s2 heard, regular rate and rhythm, no murmurs Abdomen-soft bowel sounds present non tender no distension Extremities- no erythema Neuro-alert and oriented moves extremities Lab data as noted below. ASSESSMENT & PLAN: Acute B/L PE Acute LLE DVT Present with chest pain and hypoxia on admission Provoked by recent orthopedic surgery in the LLE LE venous Doppler showed acute left lower extremity DVT with involvement of the popliteal and peroneal veins CTA chest showed Extensive bilateral pulmonary emboli bilaterally associated right heart strain. On heparin drip will need to be anticoagulate for at least 3 months Echo shows The estimated systolic PAP is 60mmhg. on iv heparin and Coumadin inr 2.7 09/30/16 stooped iv heparin and give one dose of lovenox inr today 10/01/16 3.6. Holding coumadin tonight and to restart coumadin at 2.5 mg from tomorrow needs close followup . S/P Left Ankle Surgery Failed ASA thrombo-embolic prophylaxis Ortho on board To continue fracture boot during transportation continue PT/OT Orthopedic Discharge Instructions: -Continue nonweightbearing left lower extremity -Do not submerge in a bath, it may get wet in a shower but do not scrub directly , pat dry afterwards and keep covered. -The boot may be removed to perform PT and range of motion exercises, otherwise the boot must be on with sleeping and when upright ambulating/transferring -Continue to elevate for swelling control -Please call [facility] to reschedule an appointment with Dr. Vaz for 4 weeks, new xrays will be obtained at that appointment. @[phone] -If you notice any changes at your incisions, such as increased drainage, swelling, redness, or pain, please notify our office accordingly Hypertension Stable Discharged home Vital Signs: Date Time Temp Pulse Resp B/P (MAP) Pulse Ox O2 Delivery O2 Flow Rate FiO2 10/01/16 12:15 36.5 73 18 92 Room Air 10/01/16 08:10 Room Air 10/01/16 07:08 36.5 73 18 118/71 (87) 92 Room Air 09/30/16 23:59 Room Air 09/30/16 23:36 36.6 65 18 130/80 (97) 92 Room Air Lab Results: Results Past 24 Hours Test 10/01/16 06:06 Range/Units White Blood Count 4.79 4.8-10.8 K/uL Red Blood Count 4.37 4.2-5.4 M/uL Hemoglobin 13.2 12.0-16.0 g/dL Hematocrit 40.1 37-47 % Mean Corpuscular Volume 91.8 80-100 fL Mean Corpuscular Hemoglobin 30.2 25-34 pg Mean Corpuscular Hemoglobin Concent 32.9 32-36 g/dl Platelet Count 263 130-400 K/uL Mean Platelet Volume 10.7 7.4-10.4 fL Neutrophils (%) (Auto) 62.0 % Lymphocytes (%) (Auto) 22.8 % Monocytes (%) (Auto) 8.8 % Eosinophils (%) (Auto) 5.4 % Basophils (%) (Auto) 0.6 % Neutrophils # (Auto) 2.97 1.4-6.5 K/uL Lymphocytes # (Auto) 1.09 1.2-3.4 K/uL Monocytes # (Auto) 0.42 0.11-0.59 K/uL Eosinophils # (Auto) 0.26 0-0.5 K/uL Basophils # (Auto) 0.03 0-0.2 K/uL RDW Standard Deviation 44.1 36.4-46.3 fL RDW Coefficient of Variation 13.3 11.5-14.5 % Immature Granulocyte % (Auto) 0.4 % Immature Granulocyte # (Auto) 0.02 0.00-0.02 K/uL Prothrombin Time 41.0 9.0-12.0 SECONDS Prothromb Time International Ratio 3.6 0.9-1.1 Activated Partial Thromboplast Time 34.1 21.0-31.0 SECONDS Partial Thromboplastin Ratio 1.3
--- NOTE | 2016-10-01 17:47 | Discharge Summary ---
Discharge Summary Date of Service Oct 01, 2016. Discharge Summary Admission Date: Sep 26, 2016 at 02:07 Discharge Date: Oct 01, 2016 Discharge Disposition: Home Principal Diagnosis: ACUTE PE AND DVT Secondary Diagnoses/Problems: (1) Benign hypertension Status: Chronic (2) Chronic Sinusitis Nos Status: Chronic (3) Esophageal Reflux Status: Chronic (4) Gastroesophageal reflux disease Status: Chronic (5) Hyperlipidemia Nec/Nos Status: Chronic (6) Hypertension Nos Status: Chronic (7) Hypothyroidism Status: Chronic Procedures: CTA CHEST: 1. Extensive bilateral pulmonary emboli bilaterally as above. Straightening of the intraventricular septum raises the concern for possible associated right heart strain. 2. Focal groundglass opacity of the left upper lobe may reflect atelectasis, pneumonitis or small pulmonary infarction. 3. Diffuse fatty infiltration of the liver. 4. Chronic compression deformity of T12. VENOUS DOPPLER: Acute left lower extremity DVT with involvement of the popliteal and peroneal veins ECHO:The right ventricle is not well visualized. * The right ventricle appears mildly dialted in limited views. * The right ventricular function is qualitatively normal in limited views. * There is mild tricuspid regurgitation. * The estimated systolic PAP is 60mmhg. Consultations: Pulmonary Ortho Medication Reconciliation New Medications: Warfarin Sod (Coumadin) 2.5 Mg Tab 2.5 MG PO DAILY, #30 2 Refills Continued Medications: Acetaminophen (Tylenol) 500 Mg Tab 1000 MG PO Q6H PRN for Pain, TAB Atenolol (Tenormin) 50 Mg Tab 50 MG PO QAM Calcium Carbonate-Vitamin D (Calcium 600+D3) 1 Tab Tab 1 TAB PO BID Fenofibrate (Tricor) 160 Mg Tab 160 MG PO QAM Fish Oil ([place]away-3) 1 Ea Cap 1 CAP PO BID, 0 Refills Hydrocodone-Acetaminophen (Lortab 5-325 mg) 1 Tab Tab 1 TAB PO Q4H PRN for Pain Hydroxyzine Hcl (Atarax) 25 Mg Tab 25 MG PO QAM, TAB Levothyroxine Sodium (Levothyroxine Sodium) 112 Mcg Tab 112 MCG PO QAM, TAB 5 Refills Ranitidine (Zantac) 150 Mg Tab 150 MG PO BID Discontinued Medications: Aspirin Enteric Coated (Ecotrin Or Generic) 325 Mg Ectab 325 MG PO BID, TAB "SINCE SURGERY TO PREVENT BLOOD CLOTS". Admission Information HPI (per Admitting provider): Recent confinement under orthopedic service last for left ankle fracture status post ORIF. As per patient and , they were instructed to take full dose aspirin for the next few weeks postop to prevent clots. 1 day history of shortness of breath and epigastric discomfort. No cough symptoms. Patient denies actual chest pain. Left lower extremity a little swollen. Patient brought to the emergency room. Physical Exam (per Admitting): General Appearance: + obese, + pertinent finding (slightly anxious, receiving a breathing treatment) Head: normocephalic Eyes: normal inspection Neck: + pertinent finding (short) Respiratory/Chest: + decreased breath sounds Cardiovascular: regular rate, rhythm Abdomen/GI: soft Extremities/Musculoskelatal: + pertinent finding (immobilization device on the left lower extremity) Neurologic/Psych: alert, + pertinent finding (coherent) Skin: normal color Hospital Course Acute B/L PE Acute LLE DVT Present with chest pain and hypoxia on admission Provoked by recent orthopedic surgery in the LLE LE venous Doppler showed acute left lower extremity DVT with involvement of the popliteal and peroneal veins CTA chest showed Extensive bilateral pulmonary emboli bilaterally associated right heart strain. On heparin drip will need to be anticoagulate for at least 3 months Echo shows The estimated systolic PAP is 60mmhg. on iv heparin and Coumadin inr 2.7 09/30/16 stooped iv heparin and give one dose of lovenox inr today 10/01/16 3.6. Holding coumadin tonight and to restart coumadin at 2.5 mg from tomorrow needs close followup . S/P Left Ankle Surgery Failed ASA thrombo-embolic prophylaxis Ortho on board To continue fracture boot during transportation continue PT/OT Orthopedic Discharge Instructions: -Continue nonweightbearing left lower extremity -Do not submerge in a bath, it may get wet in a shower but do not scrub directly , pat dry afterwards and keep covered. -The boot may be removed to perform PT and range of motion exercises, otherwise the boot must be on with sleeping and when upright ambulating/transferring -Continue to elevate for swelling control -Please call [facility] to reschedule an appointment with Dr. Vaz for 4 weeks, new xrays will be obtained at that appointment. @[phone] -If you notice any changes at your incisions, such as increased drainage, swelling, redness, or pain, please notify our office accordingly Hypertension Stable Discharged home Total time spent on discharge = 35MINUTES This includes examination of the patient, discharge planning, medication reconciliation, and communication with other providers. Discharge Instructions Discharge Instructions Date of Service Oct 01, 2016. Admission Reason for Admission: Respiratory Failure, Acute Discharge Discharge Diagnosis / Problem: ACUTE PE and DVT Discharge Goals Goal(s): Decrease discomfort, Improve function Activity Recommendations Activity Limitations: resume your previous activity . Instructions / Follow-Up Instructions / Follow-Up FOLLOWUP WITH FAMILY DOCTOR IN ONE WEEK HOLD COUMADIN TODAY AND RESUME COUMADIN 2.5MG PO DAILY IN EVENING FROM TOMORROW 10/02/16. TO CHECK LABS: PT/INR IN 3 DAYS( 10/04/16 AND AGAIN ON 10/08/16) AND FOLLOW RESULTS WITH FAMILY DOCTOR FOR FURTHER ADJUSTMENTS IN COUMADIN DOSING. FURTHER LAB CHECK PER FAMILY DOCTOR OR COUMADIN CLINIC. DURATION OF COUMADIN PER FAMILY DOCTOR. Current Hospital Diet Patient's current hospital diet: AHA Diet (Heart Healthy) Discharge Diet Recommended Diet: AHA Diet (Heart Healthy) Pending Studies Studies pending at discharge: no Medical Emergencies . Who to Call and When: Medical Emergencies: If at any time you feel your situation is an emergency, please call 911 immediately. . Non-Emergent Contact Non-Emergency issues call your: Primary Care Provider . . "Provider Documentation" section prepared by Noah Aly. . Nutrition Aides Teacher Recommendations Nutrition Aides Teacher Recommendations: Orthopedic Discharge Instructions: -Continue nonweightbearing left lower extremity -Do not submerge in a bath, it may get wet in a shower but do not scrub directly , pat dry afterwards and keep covered. -The boot may be removed to perform PT and range of motion exercises, otherwise the boot must be on with sleeping and when upright ambulating/transferring -Continue to elevate for swelling control -Please call [facility] to reschedule an appointment with Dr. Vaz for 4 weeks, new xrays will be obtained at that appointment. -[phone] -If you notice any changes at your incisions, such as increased drainage, swelling, redness, or pain, please notify our office accordingly -Please continue your medicine provided by your providers from [facility] to treat your pulmonary emboli. VTE Core Measure Inpt VTE Proph given/why not?: Warfarin (Coumadin), Other Anticoagulation (IV HEPARIN)
[2016-12-18] MEDS ORDERED: CMD2 PO (15:20)
== END 2016-10-01 13:05 | disposition home or self-care (01) | DRG 175 ==
LOC: EDBD 23:09 → C.EDC 23:10 → C.2T 09-26 02:07 → ENRESERV 09-26 02:16 → C.MS2W 09-28 16:49
PROVIDERS: ADMIT Internal Medicine; ATTEND Internal Medicine
DX: I26.99 Other pulmonary embolism without acute cor pulmonale (principal); J96.01 Acute respiratory failure with hypoxia; I82.432 Acute embolism and thrombosis of left popliteal vein; I82.492 Acute embolism and thrombosis of other specified deep vein of left lower extremity; I10 Essential (primary) hypertension; K21.9 Gastro-esophageal reflux disease without esophagitis; E78.5 Hyperlipidemia, unspecified; E03.9 Hypothyroidism, unspecified; Z79.82 Long term (current) use of aspirin; Z79.899 Other long term (current) drug therapy; Z98.890 Other specified postprocedural states; F17.200 Nicotine dependence, unspecified, uncomplicated

== ENCOUNTER → 2016-10-26 | Outpatient (CLI) | payer OTHER, BC ==
[~2016-10-26] MED LIST changes: -ASPI81TA21 PO; +CMD2 PO; +CMD25 PO; +HYDR-4330 PO
== END | disposition home or self-care (01) ==
LOC: C.RDSM 13:14
PROVIDERS: ATTEND Orthopaedic Surgery Sports Medicine
DX: Z09 Encounter for follow-up examination after completed treatment for conditions other than malignant neoplasm (principal); M25.572 Pain in left ankle and joints of left foot

== ENCOUNTER → 2016-11-22 | Outpatient (CLI) | payer OTHER, BC | END | disposition home or self-care (01) | LOC: C.RDSM 09:04 | PROVIDERS: ATTEND Orthopaedic Surgery Sports Medicine | DX: Z09 Encounter for follow-up examination after completed treatment for conditions other than malignant neoplasm (principal); M25.572 Pain in left ankle and joints of left foot ==

== ENCOUNTER → 2016-12-18 | Outpatient (CLI) | payer OTHER, BC | END | disposition home or self-care (01) | LOC: C.RDSM 13:42 | PROVIDERS: ATTEND Orthopaedic Surgery Sports Medicine | DX: Z09 Encounter for follow-up examination after completed treatment for conditions other than malignant neoplasm (principal) ==

== ENCOUNTER → 2016-12-28 | Day surgery (SDC) | payer OTHER, BC ==
[2016-12-18 15:21] VITALS: Ht 163.8 cm; Wt 97.3 kg
[~2016-12-28] VITALS: Ht 163.8 cm; Wt 97.3 kg
[~2016-12-28] MED LIST changes: +ATROPINE SULFATE 0.1 MG/ML 5ML SYR IV PRN; +BUPIVACAINE/EPINEPHRINE 0.5% MPF 1:200,000 30 ML VIAL ONE; +CLINDAMYCIN PHOS 150 MG/ML 2 ML VIAL IV SCH; -CMD25 PO; +DEXAMETHASONE SOD INJ 4 MG/ML VIAL ONE; +ENOX40IN SQ; +EpHEDrine SULFATE 50MG/5ML SYR ONE; +EpHEDrine SULFATE INJ 50 MG/ML AMP IV PRN; +FENTANYL CITRATE INJ 50 MCG/1 ML 2 ML VIAL ONE; -HYDR-4330 PO; +HYDROCODONE/ACETAMOPHEN 5/325MG TAB PO PRN; +LACTATED RINGER'S 1000ML 1,000 ML IV SCH; +LIDOCAINE HCL 1% 20 ML VIAL ONE; +LIDOCAINE HCL 2% 2 ML VIAL (20MG/ML) ONE; +METOCLOPRAMIDE HCL INJ 5 MG/ML 2 ML VIAL IV PRN; +MIDAZOLAM HCL 1 MG/ML 2ML VIAL ONE; +MoRPHine SULFATE 4 MG/ML 1 ML CARP\\VIAL IV PRN; +ONDANSETRON INJ 2 MG/ML 2 ML VIAL IV PRN; +ONDANSETRON INJ 2 MG/ML 2 ML VIAL ONE; +OXYCODONE/ACETAMINOPHEN 5-325 TAB PO PRN; +PROPOFOL IV EMULSION 10 MG/ML 20 ML VIAL IV ONE; +SODIUM CHLORIDE 0.9% 1000ML 1,000 ML IV SCH
--- NOTE | 2016-12-28 07:48 | Discharge Instructions-SurgCtr ---
Discharge Instructions Date of Service Dec 28, 2016. Visit Reason for Visit: Left Ankle Retained Hardware Discharge Discharge Diagnosis / Problem: S/P Left ankle hardware removal Discharge Goals Goal(s): Decrease discomfort, Improve function, Increase independence Activity Recommendations Activity Limitations: as noted below Lifting Limitations: until after follow-up appointment Exercise/Sports Limitations: until after follow-up appointment Shower/Bathe: keep incision dry Driving or Machine Use: when cleared by Dr. Vaz Weightbearing Status: Left toe touch Anesthesia . Post Anesthesia Instructions: If you have had General Anesthesia or IV Sedation: * Do not drive today. * Resume driving when surgeon permits. * Do not make important decisions or sign legal documents today. * Call surgeon for: 1. Temperature elevations greater than 101 degrees F. 2. Uncontrollable pain. 3. Excessive bleeding. 4. Persistent nausea and vomiting. 5. Medication intolerance (nausea, vomiting or rash). * For nausea and vomiting use only clear liquids such as: tea, soda, bouillon until nausea subsides, then gradually increase diet as tolerated. * If you have any concerns or questions, call your surgeon's office. If physician is unavailable and it is an emergency, call 911 or go to the nearest emergency room. . Instructions / Follow-Up Instructions / Follow-Up DIET: * Resume previous diet. MEDICATIONS: * Please take your prescriptions as instructed at your pre-op appointment and/ or see medication discharge instructions listed above. * If concerns develop, call your physician's office at . SPECIAL CARE INSTRUCTIONS: * Ice/Elevate as instructed. * Keep dressing clean, dry, intact. * Your surgical extremity may be discolored due to prepping agents used on the skin. A bluish-green tint is a normal variant and should not cause alarm. Call your doctor at [phone] if: * Temperature above 101 degrees * Pain not relieved by pain medicine ordered * There is increased drainage or redness from any incision * You have any unanswered questions, problems or concerns. FOLLOW UP VISIT: * If not already scheduled, please call the office at to schedule a follow-up appointment. Diet Recommendations Home Diet: resume previous diet Procedures Procedures Performed: Left Ankle Retained Hardware Removal Pending Studies Studies pending at discharge: no Medical Emergencies . Who to Call and When: Medical Emergencies: If at any time you feel your situation is an emergency, please call 911 immediately. . Non-Emergent Contact Non-Emergency issues call your: Primary Care Provider . . "Provider Documentation" section prepared by Gaudencio Stock. . [place] Drug Monitoring Program Search Results: no issues identified
--- NOTE | 2016-12-28 07:53 | [facility] Post Operative Brief Note ---
Immediate Operative Summary Operative Date Dec 28, 2016. Pre-Operative Diagnosis Left Ankle Retained Hardware Post-Operative Diagnosis Same Procedure(s) Performed Left Ankle Retained Hardware Removal Surgeon Dr. Zonia Vaz Agriculture Technician Surgeon(s) Dr. Rolo Causey Estimated Blood Loss 10 Findings same Specimens One plate and 5 screws removed. Do not send to lab per Dr. Vaz. Drains none Anesthesia general Complication(s) None Disposition Recovery Room / PACU
--- NOTE | 2016-12-28 08:28 | [facility] Operative Report ---
Operative Report Operative Date Dec 28, 2016. Pre-Operative Diagnosis Left Ankle Retained Hardware Post-Operative Diagnosis Same Procedure(s) Performed Left Ankle Retained Hardware Removal, Deep (Medial & Anterior) Surgeon Dr. Zonia Vaz Agricultural Produce Sorter Surgeon(s) Dr. Rolo Causey Estimated Blood Loss 10 Findings Painful retained hardware left ankle. Fractures healed. Fluids (cc crystalloids) 700 Specimens One plate and 5 screws removed. Do not send to lab per Dr. Vaz. Drains n/a Anesthesia LMA Complication(s) None Disposition Recovery Room / PACU (Stable) Implants n/a Indications The patient is a 66 year old female who underwent previous ORIF of the left ankle over 3 months ago, with healed fractures, and has pain over the medial hardware, that is limiting her ability to progress with activities and physical therapy. The patient would like to have the medial anterior hardware removed. The patient understands the risks of surgery, which include but are not limited to: bleeding, infection, re-operation, damage to nerves and arteries, continued pain, loss of reduction, refracture, the need for repeat surgery, decrease level of activity, and DVT. The patient understand all of these instructions and explanations, all of their questions have been satisfactorily addressed. The patient have elected to proceed with surgery and the informed consent was signed. Description of Procedure The patient was taken to the Operating Room and placed in the supine position on the operating table. After general anesthetic was administered a multidisciplinary time-out was performed identifying my initials on the left limb as the correct and operative limb. Prior to the incision being made, 900 milligrams of intravenous clindamycin was given. The left leg was prepped and draped in the standard fashion. The previous medial and anterior incisions were marked and injected with a 50: 50 mixture of 1% lidocaine and 0.5 % Marcaine with epi for a total of 10cc. The planned medial incision was made and carried down through the skin and subcutaneous tissue to the plate which was adjacent to the bone. The length of the plate was identified and freed of any scar tissue. The 2 proximal screws were easily removed and the medial malleoli are screw was partially backed out to allow the plate to be removed. Fluoroscopy was brought in to ensure that the fracture was completely healed before removing the cannulated screw. Any scar tissue was debrided with a rongeur. At this point our attention was drawn to the 2 anterior to posterior screws and using the previous anterior incision is carried down through the skin, subcutaneous tissue and medial to the tibialis anterior tendon was carried down to the bone. Using fluoroscopy to help findings cannulated screws, these were removed. Final fluoroscopic images were obtained showing that the fractures remained healed and the lateral fibular plate and screws remained in place. Her range of motion of the ankle at that point dorsiflexion neutral to 5. The wounds were copiously irrigated. The subcutaneous layer was closed with 3- 0 Vicryl. The skin was closed with 4-0 Monocryl followed by Dermabond. Once the Dermabond had dried, Steri-Strips were placed over top. The sponge and needle counts were correct. The wounds were covered with 4x4's, ABD's, Steril cast padding, and an AO splint was placed. The patient was awakened and taken to the recovery room in stable condition. Post-op Instructions: The patient will be toe-touch weightbearing. Pain medicine prescription was given pre-operatively to be taken as needed. The patient will work with physical therapy to regain full range of motion and gait training. The patient will follow up with me in 10-15 days. I attest to the content of the Intraoperative Record and any orders documented therein. Any exceptions are noted below.
[2016-12-28] MEDS: FENTANYL CITRATE INJ 50 MCG/1 ML 2 ML VIAL IV PRN ×2 (09:13→09:20)
--- NOTE | 2016-12-28 09:58 | Anesthesiology Progress Note ---
Anesthesia Post Op Note Date & Time Dec 28, 2016 at 09:58 Vital Signs Pain Intensity: 4 Vital Signs Past 12 Hours Date Time Temp Pulse Resp B/P (MAP) Pulse Ox O2 Delivery O2 Flow Rate FiO2 12/28/16 09:43 75 16 146/72 (96) 93 Room Air 12/28/16 09:36 75 22 12/28/16 09:36 75 22 146/84 (111) 96 12/28/16 09:31 78 19 99 12/28/16 09:31 77 19 12/28/16 09:30 146/75 (107) 12/28/16 09:26 78 12 143/71 (98) 97 12/28/16 09:26 78 12 12/28/16 09:21 72 19 97 12/28/16 09:21 72 19 12/28/16 09:20 139/84 (110) 12/28/16 09:16 77 16 12/28/16 09:16 78 16 137/79 (110) 98 12/28/16 09:11 75 17 12/28/16 09:11 75 17 98 12/28/16 09:10 137/83 (106) 12/28/16 09:06 81 17 12/28/16 09:06 80 17 100 12/28/16 09:05 141/75 (91) 12/28/16 09:01 74 20 12/28/16 09:01 74 20 97 12/28/16 09:00 138/75 (83) 12/28/16 08:56 75 15 12/28/16 08:56 74 15 97 12/28/16 08:55 130/67 (104) 12/28/16 08:51 77 15 12/28/16 08:51 78 15 97 12/28/16 08:50 132/72 (82) 12/28/16 08:47 128/76 (83) 12/28/16 08:45 36 78 12 128/76 95 Diffusion Mask 5 12/28/16 06:31 36.8 74 16 157/94 (115) 95 Room Air Notes Mental Status: alert / awake / arousable, participated in evaluation Pt Amnestic to Procedure: Yes Nausea / Vomiting: adequately controlled Pain: adequately controlled Airway Patency, RR, SpO2: stable & adequate BP & HR: stable & adequate Hydration State: stable & adequate Anesthetic Complications: no major complications apparent
[2016-12-28 10:10] VITALS: BP 131/73; PULSE 68; O2SAT 93
== END | disposition home or self-care (01) ==
LOC: X.SURG 06:04
PROVIDERS: ATTEND Orthopaedic Surgery Sports Medicine
DX: T84.84XA Pain due to internal orthopedic prosthetic devices, implants and grafts, initial encounter (principal); Y79.2 Prosthetic and other implants, materials and accessory orthopedic devices associated with adverse incidents; I10 Essential (primary) hypertension; E78.00 Pure hypercholesterolemia, unspecified; Z86.711 Personal history of pulmonary embolism; E03.9 Hypothyroidism, unspecified; K21.9 Gastro-esophageal reflux disease without esophagitis; E66.9 Obesity, unspecified; K44.9 Diaphragmatic hernia without obstruction or gangrene; Z90.49 Acquired absence of other specified parts of digestive tract; Z90.710 Acquired absence of both cervix and uterus; Z90.89 Acquired absence of other organs; Z79.82 Long term (current) use of aspirin

== ENCOUNTER → 2017-02-21 | Outpatient (CLI) | payer OTHER, BC ==
[~2017-02-21] MED LIST changes: -ATROPINE SULFATE 0.1 MG/ML 5ML SYR IV PRN; -BUPIVACAINE/EPINEPHRINE 0.5% MPF 1:200,000 30 ML VIAL ONE; -CLINDAMYCIN PHOS 150 MG/ML 2 ML VIAL IV SCH; -DEXAMETHASONE SOD INJ 4 MG/ML VIAL ONE; -EpHEDrine SULFATE 50MG/5ML SYR ONE; -EpHEDrine SULFATE INJ 50 MG/ML AMP IV PRN; -FENTANYL CITRATE INJ 50 MCG/1 ML 2 ML VIAL ONE; -HYDROCODONE/ACETAMOPHEN 5/325MG TAB PO PRN; -LACTATED RINGER'S 1000ML 1,000 ML IV SCH; -LIDOCAINE HCL 1% 20 ML VIAL ONE; -LIDOCAINE HCL 2% 2 ML VIAL (20MG/ML) ONE; -METOCLOPRAMIDE HCL INJ 5 MG/ML 2 ML VIAL IV PRN; -MIDAZOLAM HCL 1 MG/ML 2ML VIAL ONE; -MoRPHine SULFATE 4 MG/ML 1 ML CARP\\VIAL IV PRN; -ONDANSETRON INJ 2 MG/ML 2 ML VIAL IV PRN; -ONDANSETRON INJ 2 MG/ML 2 ML VIAL ONE; -OXYCODONE/ACETAMINOPHEN 5-325 TAB PO PRN; -PROPOFOL IV EMULSION 10 MG/ML 20 ML VIAL IV ONE; -SODIUM CHLORIDE 0.9% 1000ML 1,000 ML IV SCH
== END | disposition home or self-care (01) ==
LOC: C.RDSM 11:30
PROVIDERS: ATTEND Orthopaedic Surgery Sports Medicine
DX: Z09 Encounter for follow-up examination after completed treatment for conditions other than malignant neoplasm (principal); M25.562 Pain in left knee

== ENCOUNTER → 2017-03-27 | Outpatient (CLI) | payer OTHER, BC ==
--- NOTE | 2017-03-27 13:14 | DIAGNOSTIC IMAGING REPORT ---
L LOWER EXT JOINT WITHOUT CLINICAL HISTORY: 66 years-old Female with L KNEE PAIN. Acute left knee pain status post injury. Pain is most pronounced medially. COMPARISON: Bilateral knee radiographs 05/27/2015 TECHNIQUE: Multiplanar, multisequence MRI of the left knee was performed without intravenous contrast. FINDINGS: MENISCI: Mild irregularity of the posterior horn lateral meniscus without discrete tear identified. Mild intrameniscal degeneration is noted within the posterior horn medial meniscus without discrete tear. No parameniscal cyst. CRUCIATE LIGAMENTS: The anterior and posterior cruciate ligaments are normal in signal, morphology and course. COLLATERAL LIGAMENTS: The popliteus tendon, biceps femoris tendon, fibular collateral ligament and iliotibial band are intact. The superficial and deep components of the medial collateral ligament are intact. EXTENSOR MECHANISM: The quadriceps and patellar tendons are intact. The medial and lateral patellar retinacula are intact. KNEE JOINT: Mild tricompartmental joint space narrowing with marginal spurring and mostly low-grade chondromalacia. Areas of moderate grade chondral loss are noted involving the medial femoral condyle. Only minimal chondromalacia involves the patellofemoral joint. Trace joint effusion. No intra-articular loose body identified. BONE MARROW: There is moderate bone marrow edema noted involving the medial femoral condyle, greatest along the anteromedial margin. Mild associated soft tissue edema with edema interposed between the condyle and MCL. No discrete fracture identified. No insufficiency fracture. Bone marrow is otherwise within normal limits. SOFT TISSUES: There is mild intramuscular edema and mild surrounding soft tissue edema involving the medial head gastrocnemius tendon as seen on image 8 series 4. Trace fluid is noted within the deep pretibial bursa. IMPRESSION: 1. Mild intramuscular and mild surrounding soft tissue edema involving the medial head gastrocnemius attachment site suggests grade 1 muscle strain. 2. Moderate bone marrow edema of the medial femoral condyle without fracture suggests bone marrow contusion. 3. Mild tricompartmental degenerative changes, most pronounced within the medial compartment. 4. No discrete meniscal tear or acute ligamentous injury identified. 5. Trace joint effusion with minimal fluid seen within the deep pretibial bursa. The above report was generated using voice recognition software. It may contain grammatical, syntax or spelling errors. Electronically signed by: Ras Zavala M.D. 03/27/2017 1:12 PM Dictated Date/Time: 03/27/2017 1:00 PM
== END | disposition home or self-care (01) ==
LOC: C.MRI 11:20
PROVIDERS: ATTEND Orthopaedic Surgery Sports Medicine
DX: M25.462 Effusion, left knee (principal); M67.50 Plica syndrome, unspecified knee

== ENCOUNTER → 2017-05-31 | Outpatient (CLI) | payer OTHER, BC ==
[~2017-05-31] MED LIST changes: +RANI150T85 PO; -ZNTT/150 PO
--- NOTE | 2017-06-03 12:42 | MAMMOGRAPHY REPORT ---
BILATERAL DIGITAL SCREENING MAMMOGRAM TOMOSYNTHESIS WITH CAD: 05/31/2017 TECHNIQUE: Breast tomosynthesis in addition to standard 2D mammography was performed. Current study was also evaluated with a Computer Aided Detection (CAD) system. COMPARISON: Comparison is made to exams dated: 03/08/2016 mammogram, 03/02/2015 mammogram, 4 mammogram, 02/25/2013 mammogram, 02/20/2012 mammogram, and 02/15/2010 mammogram - [facility]. BREAST COMPOSITION: There are scattered areas of fibroglandular density in both breasts. FINDINGS: No suspicious masses, calcifications, or areas of architectural distortion are noted in ei ther breast. There has been no significant interval change compared to prior exams. IMPRESSION: ACR BI-RADS CATEGORY 1: NEGATIVE There is no mammographic evidence of malignancy. A 1 year screening mammogram is recommended. The pa tient will receive written notification of the results. Approximately 10% of breast cancers are not detected with mammography. A negative mammographic report should not delay biopsy if a clinically suggestive mass is present. Maura Aguirre M.D. ah/:05/31/2017 14:44:40 Sales Marketing Director: La BURGESS(Bryant)(Paulina), [facility] letter sent: Normal 1/2 BI-RADS Code: ACR BI-RADS Category 1: Negative
== END | disposition home or self-care (01) ==
LOC: C.MAMM 13:19
PROVIDERS: ATTEND Physician Assistant
DX: Z12.31 Encounter for screening mammogram for malignant neoplasm of breast (principal)